=== PATIENT | male | born 1965 | race Caucasian/White ===

== ENCOUNTER 2016-11-02 20:28 | Emergency (ER) | payer OTHER ==
[~2016-11-02 20:28] MED LIST: ACID REDUCER 1150 MG PO; ACTOS PO; ACTOS15 MG PO; AMARYL2 MG PO; B6100 MG PO; BAYER ASPIRIN325 M1 PO; CARBATROL200 MG PO; CEROVITE SILVER1 TA1 PO; CHLORTHALIDONE25 M1 PO; CHLORTHALIDONE25 MG PO; CLINORIL PO; CLOTRIMAZOLE-BE30 M1 TOP; COGENTIN PO; COGENTIN0.5 M1 DOB; COGENTIN0.5 M1 PO; COLACE PO; DEPAKOTE ER PO; DEPAKOTE PO; DIVALPROEX SOD500 M1 PO; DIVALPROEX SOD500 MG PO; DOCUSATE SODIU100 MG PO; DULCOLAX5 MG PO; DYAZIDE 37.5/251 CAP PO; DYAZIDE 371 CAP 37.5 PO; FLEXERIL PO; FLEXERIL10 M1 PO; FLEXERIL10 MG PO; FUROSEMIDE40 MG PO; GLIMEPIRIDE2 MG PO; GLUCOTROL PO; HALDOL0.5 MG PO; HYDROCODONE/APA1 T16 PO; IBUPROFEN100 MG; IBUPROFEN800 MG PO; INVEGA3 MG PO; JANUVIA PO; JANUVIA100 MG PO; K-DUR10 MEQ PO; K-DUR20 ME1 PO; K-TAB ER20 MEQ PO; LANTUS100 U/ML SUBQ; LASIX PO; LEVEMIR SQ; LEVEMIR100 UNITS/ SUBQ; LIORESAL10 MG PO; LISINOPRIL10 MG PO; METFORMIN HCL1000 M1 PO; METFORMIN PO; METOPROLOL TAR25 MG PO; NAPROSYN250 M1 PO; NEURONTIN100 MG PO; OMEPRAZOLE20 M1 PO; OMEPRAZOLE20 M2 PO; PIOGLITAZONE15 MG PO; PIOGLITAZONE45 MG PO; PRILOSEC PO; PRILOSEC20 MG PO; PRINIVIL10 MG PO; QUETIAPINE FUM300 MG PO; SEROQUEL XR300 MG PO; SEROQUEL300 MG PO; SEROQUEL50 M1 PO; SIMVASTATIN20 MG PO; TEGRETOL-XR100 MG PO; THERAGRAN-M PR1 EACH; THERAGRAN1 TAB PO; TRADJENTA5 MG PO; VICODIN 5/1 TAB 5/50 PO; VIMPAT200 MG PO; VITAMIN B650 M1 PO; VOLTAREN75 MG PO; ZANTAC150 M1 PO; ZANTAC150 MG PO; ZESTRIL10 M1 PO; ZOCOR PO; ZOCOR20 MG PO
[2016-11-02 20:41] LABS: URINE SOURCE CLEAN CATCH
[2016-11-02 20:42] LABS: URINE APPEARANCE CLEAR; URINE BILIRUBIN NEG (NEG); URINE BLOOD NEG (NEG); URINE COLOR YELLOW; URINE GLUCOSE 100 MG/DL (NORM); URINE KETONE TRACE (NEG); URINE LEUKOCYTE ESTERASE NEG (NEG); URINE NITRATE NEG (NEG); URINE PH 5.5 (5-8); URINE PROTEIN NEG (NEG); URINE SPECIFIC GRAVITY 1.025 (1.003-1.035); URINE UROBILINOGEN 0.2 MG/DL (NORM)
[2016-11-02 20:43] LABS: MICRO INDICATED? NO
[2016-11-02 21:58] LABS: BASOPHIL% 0.7 % (0-2.5); EOSINOPHIL% 0.8 % (0.0-7.0); HEMATOCRIT 39.4 % (38.0-50.0); LYMPHOCYTE# 1.6 X10e3 (1.0-3.5); MEAN CELL VOLUME 65.7 FL (83-96); MEAN CORPUSCULAR HEMOGLOBIN 20.1 PG (28-34); MEAN CORPUSCULAR HGB CONC 30.5 g/dL (30-36); MEAN PLATELET VOLUME 8.9 FL (6.5-11.5); MONOCYTE# 0.5 X10e3 (0-1.0); MONOCYTE% 8.8 % (3.0-12.0); NEUTROPHIL# 3.1 X10e3 (1.5-7.1); NEUTROPHIL% 59.7 % (40-75); PLATELET COUNT 239 X10e3 (140-420); RED CELL DISTRIBUTION WIDTH 16.4 % (11.0-15.5); WHITE BLOOD COUNT 5.2 X10e3 (4.0-10.5)
[2016-11-02 21:59] LABS: DIFF IND NO
[2016-11-02 22:07] LABS: ALBUMIN SERUM 3.8 g/dL (3.5-5.0); ALKALINE PHOSPHATASE 57 U/L (32-92); ALT (SGPT) 24 U/L (10-40); AST (SGOT) 30 U/L (10-42); BILIRUBIN,TOTAL 0.3 mg/dL (0.2-2.0); BLOOD UREA NITROGEN 23 mg/dL (9-23); BUN/CREATININE RATIO 19.16; CALCIUM SERUM 8.9 mg/dL (8.4-10.2); CARBON DIOXIDE 29 mmol/L (22-31); CHLORIDE 101 mmol/L (100-111); CREATININE SERUM 1.2 mg/dL (0.6-1.4); GLOM FILT RATE Estimated ABOVE60 mL/min (>60); GLUCOSE FASTING 224 mg/dL (70-110); POTASSIUM 4.5 mmol/L (3.5-5.1); PROTEIN TOTAL SERUM 7.1 g/dL (6.0-8.3); SODIUM 137 mmol/L (135-145)
== END 2016-11-02 22:46 | disposition home or self-care (01) ==
LOC: SED 20:28
PROVIDERS: Emergency Medicine; Physician Assistant
DX: M77.9 Enthesopathy, unspecified (principal); E11.9 Type 2 diabetes mellitus without complications; I10 Essential (primary) hypertension; F41.9 Anxiety disorder, unspecified; K21.9 Gastro-esophageal reflux disease without esophagitis; Z91.040 Latex allergy status; Z79.899 Other long term (current) drug therapy
CPT/HCPCS: 29280; 36415; 80053; 81003; 85025; 99283

== ENCOUNTER 2016-11-16 17:20 | Emergency (ER) | payer OTHER ==
--- NOTE | ~2016-11-16 | CR63 ---
[facility]. [facility] A Service of [facility] RADIOLOGY TEXT RESULTS PATIENT: CARL LATHAM LOCATION: SED : 63 UNIT #: [id number] AGE: [address]: YANN RUTH PA-C SEX: M ORDER DR: [id number] [place] [address] [id number] E MR#: [id number] Acc #: [id number] NAME: CARL LATHAM : 1965 SEX: M STUDY DATE/TIME: 11/16/2016 18:13 UNIT: SED ROOM: STUDY DESCRIPTION: CR Chest 2 View Attending Physician: Yann Ruth Pa-C Ordering Physician: Yann Ruth Pa-C Primary Care Physician: Elijah Gaona M.D. MEDICAL IMAGING REPORT This report is preliminary unless electronic signature is present. EXAM Chest x-ray HISTORY Chest pain with left hand, arm and neck tingling, onset today. COMPARISON 03/18/2016 TECHNIQUE 2 views of the chest were obtained. FINDINGS PA and lateral examination of the chest upright shows a good expansion of the parenchyma with a normal distribution of the pulmonary vascularity. There is no indication of congestion, effusion, infiltrate, tumor, or nodular density. The pleural reflections and diaphragmatic contours are normal. The cardiac silhouette and mediastinal anatomy is within normal limits. IMPRESSION Normal chest. Dictated by... Deejay Singh M.D. THIS IS AN ELECTRONICALLY VERIFIED REPORT Deejay Singh M.D. at 11/17/2016 8:03 AM RLF/vicente TD: 11/16/2016 23:37 [facility] A Service [facility] RADIOLOGY TEXT RESULTS PATIENT: CARL LATHAM LOCATION: SED : 63 UNIT #: [id number] AGE: [address]: YANN RUTH PA-C SEX: M ORDER DR: LEVY #: [id number] MEDICAL IMAGING REPORT Page 1 of 1
--- NOTE | ~2016-11-16 | EKG ---
PATIENT: CARL LATHAM UNIT #: [id number] Ventricular Rate: 79 BPM Atrial Rate: 79 BPM P-R Interval: 180 ms QRS Duration: 154 ms Q-T Interval: 416 ms QTC Calculation(Bezet): 477 ms P [place]: 53 degrees Calculated R [place]: 15 degrees Calculated T [place]: 18 degrees Diagnosis Line: Normal sinus rhythm Diagnosis Line: Right bundle branch block Diagnosis Line: Abnormal ECG Diagnosis Line: When compared with ECG of 16-NOV-2016 17:50, Diagnosis Line: (unconfirmed) Diagnosis Line: No significant change was found Diagnosis Line: Confirmed by MARQUITA CAMARENA MD ([id number]) on 11/17/2016 Diagnosis Line: 10:33:43 PM INTERPRETING MD: NICOL CARDENAS
--- NOTE | ~2016-11-16 | EKG ---
PATIENT: CARL LATHAM UNIT #: [id number] Ventricular Rate: 85 BPM Atrial Rate: 85 BPM P-R Interval: 186 ms QRS Duration: 148 ms Q-T Interval: 402 ms QTC Calculation(Bezet): 478 ms P Arthur: 61 degrees Calculated R Arthur: 31 degrees Calculated T Arthur: 22 degrees Diagnosis Line: Normal sinus rhythm Diagnosis Line: Possible Left atrial enlargement Diagnosis Line: Right bundle branch block Diagnosis Line: Abnormal ECG Diagnosis Line: No previous ECGs available Diagnosis Line: Confirmed by ISABELLA BAR MD ([id number]) on Diagnosis Line: 12/02/2016 7:11:32 AM INTERPRETING MD: THOMAS
--- NOTE | ~2016-11-16 | EKG ---
PATIENT: CARL LATHAM UNIT #: [id number] Ventricular Rate: 91 BPM Atrial Rate: 91 BPM P-R Interval: 188 ms QRS Duration: 158 ms Q-T Interval: 392 ms QTC Calculation(Bezet): 482 ms P Addis: 57 degrees Calculated R Addis: 13 degrees Calculated T Addis: 16 degrees Diagnosis Line: Normal sinus rhythm Diagnosis Line: Right bundle branch block Diagnosis Line: Abnormal ECG Diagnosis Line: When compared with ECG of 01-JUN-2016 14:02, Diagnosis Line: No significant change was found Diagnosis Line: Confirmed by ISABELLA BAR MD ([id number]) on Diagnosis Line: 12/02/2016 7:11:11 AM INTERPRETING : THOMAS
[2016-11-16 18:16] LABS: BASOPHIL% 0.7 % (0-2.5); EOSINOPHIL% 0.6 % (0.0-7.0); HEMOGLOBIN 12.4 gm/dL (13.0-16.0); LYMPHOCYTE# 1.3 X10e3 (1.0-3.5); LYMPHOCYTE% 22.9 % (17.0-45.0); MEAN CELL VOLUME 65.6 FL (83-96); MEAN CORPUSCULAR HEMOGLOBIN 20.3 PG (28-34); MEAN CORPUSCULAR HGB CONC 30.9 g/dL (30-36); MEAN PLATELET VOLUME 8.8 FL (6.5-11.5); MONOCYTE# 0.6 X10e3 (0-1.0); MONOCYTE% 9.8 % (3.0-12.0); NEUTROPHIL# 3.8 X10e3 (1.5-7.1); PLATELET COUNT 232 X10e3 (140-420); RED CELL DISTRIBUTION WIDTH 15.8 % (11.0-15.5); WHITE BLOOD COUNT 5.8 X10e3 (4.0-10.5)
[2016-11-16 18:23] LABS: DIFF IND NO
[2016-11-16 18:30] LABS: POC - CKMB 1.4 ng/mL (0.0-7.9)
[2016-11-16 18:31] LABS: POC - TROPONIN <0.05 ng/mL (<=0.05)
[2016-11-16 18:36] LABS: ALBUMIN SERUM 3.8 g/dL (3.5-5.0); BILIRUBIN, DIRECT 0.1 mg/dL (0.0-0.2); BILIRUBIN,INDIRECT 0.2 mg/dL (0.0-0.9); BILIRUBIN,TOTAL 0.3 mg/dL (0.2-2.0); BUN/CREATININE RATIO 20.71; CALCIUM SERUM 8.4 mg/dL (8.4-10.2); CREATININE SERUM 1.4 mg/dL (0.6-1.4); GLOM FILT RATE Estimated 57.8 mL/min (>60); POTASSIUM 4.2 mmol/L (3.5-5.1); PROTEIN TOTAL SERUM 7.1 g/dL (6.0-8.3)
[2016-11-16 19:50] LABS: POC - CKMB 1.2 ng/mL (0.0-7.9); POC - MYOGLOBIN 91.5 ng/mL (0.0-169.0)
[2016-11-16 19:51] LABS: POC - TROPONIN <0.05 ng/mL (<=0.05)
== END 2016-11-17 01:45 | disposition hospice, home (50) ==
LOC: SED 17:20
PROVIDERS: Physician Assistant
DX: M79.602 Pain in left arm (principal); M54.2 Cervicalgia; E11.65 Type 2 diabetes mellitus with hyperglycemia; I10 Essential (primary) hypertension; F41.9 Anxiety disorder, unspecified; F32.9 Major depressive disorder, single episode, unspecified; E87.1 Hypo-osmolality and hyponatremia; Z91.040 Latex allergy status; Z79.899 Other long term (current) drug therapy
CPT/HCPCS: 36415; 71020; 80048; 80076; 82553; 82947; 83874; 84484; 85025; 85379; 93005; 96374; 99285; J2270; J2405

== ENCOUNTER 2016-11-24 21:19 | Emergency (ER) | payer OTHER ==
--- NOTE | ~2016-11-24 | CR133 ---
[facility]. [facility] A Service of [facility] RADIOLOGY TEXT RESULTS PATIENT: CARL LATHAM LOCATION: SED : 63 UNIT #: [id number] AGE: [address]: Dean Kim SEX: M ORDER DR: [id number] [place] [id number] E MR#: [id number] Acc #: [id number] NAME: CARL LATHAM : 1965 SEX: M STUDY DATE/TIME: 11/24/2016 21:27 UNIT: SED ROOM: STUDY DESCRIPTION: CR Forearm 2 View Rt Attending Physician: Dean Kim P.A.-C. Ordering Physician: Dean Kim P.A.-C. Primary Care Physician: Elijah Gaona M.D. MEDICAL IMAGING REPORT This report is preliminary unless electronic signature is present. EXAM Right forearm 2 views HISTORY Forearm pain, onset today. FINDINGS 2 views of the right forearm demonstrate arterial vascular calcifications along the volar aspect of the forearm. Correlate clinically for risk factors of peripheral vascular disease. No fracture or dislocation. Wrist and elbow joint unremarkable. IMPRESSION Arterial vascular calcifications medial distal forearm raises concern for underlying arterial vascular disease. Correlate for risk factors. Dictated by... Julissa Fields M.D. THIS IS AN ELECTRONICALLY VERIFIED REPORT Julissa Fields M.D. at 11/25/2016 2:04 PM AMITA/mahesh TD: 11/24/2016 22:51 JOB #: [id number] MEDICAL IMAGING REPORT Page 1 of 1
--- NOTE | ~2016-11-24 | CR142 ---
[facility] [[email or web address] A Service of [facility] & [facility] RADIOLOGY TEXT RESULTS PATIENT: CARL LATHAM LOCATION: SED : 63 UNIT #: [id number] AGE: [address]: Dean Kim SEX: M ORDER DR: [id number] [place] [id number] E MR#: [id number] Acc #: [id number] NAME: CARL LATHAM : 1965 SEX: M STUDY DATE/TIME: 11/24/2016 21:27 UNIT: SED ROOM: STUDY DESCRIPTION: CR Hand Min 3 Views Rt Attending Physician: Dean Kim P.A.-C. Ordering Physician: Dean Kim P.A.-C. Primary Care Physician: Elijah Gaona M.D. MEDICAL IMAGING REPORT This report is preliminary unless electronic signature is present. EXAM Right hand 3 views HISTORY Entire forearm and hand pain today. No injury FINDINGS Three views of the right hand demonstrates mild arthritic changes at the fifth PIP joint. No fracture or dislocation. Bone mineralization appears normal. Soft tissues unremarkable. IMPRESSION Suspected mild degenerative changes fifth PIP joint possibly posttraumatic in nature. Dictated by... Julissa Fields M.D. THIS IS AN ELECTRONICALLY VERIFIED REPORT Julissa Fields M.D. at 11/25/2016 2:04 PM Hoa TD: 11/24/2016 22:48 JOB #: [id number] MEDICAL IMAGING REPORT Page 1 of 1
== END 2016-11-24 22:40 | disposition home or self-care (01) ==
LOC: SED 21:19
DX: M25.531 Pain in right wrist (principal); M79.631 Pain in right forearm; F41.9 Anxiety disorder, unspecified; Z79.899 Other long term (current) drug therapy; Z91.040 Latex allergy status
CPT/HCPCS: 29125; 73090; 73130; 99283

== ENCOUNTER 2016-12-01 09:56 | Emergency (ER) | payer OTHER ==
--- NOTE | ~2016-12-01 | EKG ---
PATIENT: CARL LATHAM UNIT #: [id number] Ventricular Rate: 98 BPM Atrial Rate: 98 BPM P-R Interval: 186 ms QRS Duration: 160 ms Q-T Interval: 408 ms QTC Calculation(Bezet): 520 ms P [place]: 57 degrees Calculated R [place]ichey: 28 degrees Calculated T Richey: 4 degrees Diagnosis Line: Normal sinus rhythm Diagnosis Line: Right bundle branch block Diagnosis Line: Abnormal ECG Diagnosis Line: When compared with ECG of 17-NOV-2016 01:34, Diagnosis Line: No significant change was found Diagnosis Line: Confirmed by ISABELLA BAR MD ([id number]) on Diagnosis Line: 12/02/2016 7:18:04 AM INTERPRETING MD: THOMAS
[2016-12-01 10:50] LABS: ALBUMIN SERUM 4.2 g/dL (3.5-5.0); BILIRUBIN,TOTAL 0.2 mg/dL (0.2-2.0); BUN/CREATININE RATIO 21.33; CALCIUM SERUM 8.5 mg/dL (8.4-10.2); CREATININE SERUM 1.5 mg/dL (0.6-1.4); GLOM FILT RATE Estimated 53.2 mL/min (>60); MAGNESIUM 2.2 mg/dL (1.6-3.0); PHOSPHOROUS 3.1 mg/dL (2.5-4.6); POTASSIUM 4.1 mmol/L (3.5-5.1); PROTEIN TOTAL SERUM 7.4 g/dL (6.0-8.3)
== END 2016-12-01 13:01 | disposition home or self-care (01) ==
LOC: SED 09:56
PROVIDERS: Emergency Medicine
DX: R73.9 Hyperglycemia, unspecified (principal); E86.0 Dehydration; N18.9 Chronic kidney disease, unspecified; Z91.040 Latex allergy status; Z79.899 Other long term (current) drug therapy
CPT/HCPCS: 36415; 80053; 82947; 83735; 84100; 93005; 96361; 96374; 99284

== ENCOUNTER 2016-12-06 23:51 | Emergency (ER) | payer OTHER | END 2016-12-07 00:42 | disposition home or self-care (01) | LOC: SED 23:51 | DX: M54.12 Radiculopathy, cervical region (principal); I10 Essential (primary) hypertension; E11.9 Type 2 diabetes mellitus without complications; F41.9 Anxiety disorder, unspecified; F32.9 Major depressive disorder, single episode, unspecified; K21.9 Gastro-esophageal reflux disease without esophagitis; R56.9 Unspecified convulsions; Z91.040 Latex allergy status; Z79.899 Other long term (current) drug therapy; Z79.4 Long term (current) use of insulin | CPT/HCPCS: 99283 ==

== ENCOUNTER 2016-12-20 15:02 | Inpatient (IN) | payer OTHER ==
--- NOTE | ~2016-12-20 | A ---
[facility] Nutrition Therapy DATE: 12/22/16 Patient: CARL LATHAM Physician: FRANKLYN Address: [address] [address] Room/Bed: [address], Zip: [place] [id number] Admit Date: 12/20/16 Date of : 63 Height: 5 9 Weight: 207 94 NUTRITIONAL ASSESSMENT: REASON: Consult RE: diabetic diet education 51 yo male admitted for chest pain PMH: Seizures, mild mental retardation, valvular heart disease, T2DM, dyslipidemia, renal failure Anthropometrics: Ht: 5'9" Wt: 94.1 kg (207#) BMI: 30.6 Labs: Na+ 133, Gluc 234, BUN 25, Ca++ 8.2, POC 150 Meds: Levemir, Novolog, Klor, Protonix, Furosemide, Zofran, NaCl I/O & Bowel function: 3127/2750, last BM unknown Skin Integrity: Scar (L knee/lilly), no edema noted Assessment: Chart reviewed, events noted. Per RN, pt lives in a assisted and was on non-DKA protocol yesterday. Per chart, upon admission blood glucose levels were in 900's. Per RN, pt's blood sugars levels have been very inconsistent during admission. Per RN, pt has good PO intake. RD internet developer provided written and verbal diabetic diet education. Pt reported not eating consistently throughout the day. Pt reported consuming sodas and sweets daily. RD internet developer discussed carbohydrate foods, portion sizes, and a sample menu. RD internet developer encouraged drinking more water, eating 3 meals/d, and limiting sweets. RD internet developer provided written and verbal goals for pt after d/c. RD internet developer encouraged pt to review handout with family. Pt verbalized understanding, expect moderate compliance after d/c with help from family. Pt asked questions, RD internet developer responded appropriately. RD internet developer to remain available. Dx: Food and nutrition related knowledge deficit RT no previous diet education AEB need for diet educaiton, elevated blood glucose levels. Intervention: 1. Diabetic diet education 2. 60 gm CHO/meal Monitoring, Evaluation and Goals: 1. PO intake; consume >75% of meals 2. Labs; WNL: glucose [facility] Nutrition Therapy DATE: 12/22/16 Patient: CARL LATHAM Physician: FRANKLYN Address: [address] [address] Room/Bed: [address], Zip: [place] [address] Admit Date: 12/20/16 Date of : 63 Height: 5 9 Weight: 207 94 Recommendations: 1. Encourage compliance to 60 gram carbohydrate diet. 2. Re-consult RD if further diet education is needed/requested. RD will f/u per protocol. Respectfully, Leyda Ramirez, Ribbon Blocker Ijeoma Chew MS, RD, LD Food and Nutritional Services [facility] cc: client file
--- NOTE | ~2016-12-20 | TH ---
Unit #: [id number] #: [id number] Patient: CARL LATHAM [id number] [address] [address] [id number] I MR#: [id number] NAME: CARL LATHAM : 1965 SEX: M STUDY DATE/TIME: 12/22/2016 UNIT: [facility] ROOM: [facility] STUDY DESCRIPTION: Attending Physician: Mae Nelson M.D. Primary Care Physician: Elijah Gaona M.D. CARDIOLOGY REPORT EXAM Lexiscan Cardiolite stress test, nuclear portion. PROCEDURE Using technetium 99m labeled Cardiolite, rest and stress SPECT images were obtained. Multiple SPECT images were obtained in various views including horizontal and vertical long axis and short axis views of the left ventricle. Images were obtained by gated SPECT method. The patient was administered 11.42 mCi of Cardiolite at rest. Patient was administered 35.3 mCi of Cardiolite after Lexiscan infusion was completed. On the stress images, there is normal perfusion noted. The rest images showed normal perfusion. Comparing rest and stress images, there is no stress-induced ischemia noted. The left ventricular ejection fraction is calculated to be 70%. There is no focal wall motion abnormality seen. CONCLUSION 1. No stress-induced ischemia noted. 2. The left ventricular ejection fraction is calculated to be 70%. 3. There is no focal wall motion abnormality seen. 4. Normal Lexiscan Cardiolite stress test. Dictated by... Abdelrahman Peter TD: 12/22/2016 16:12 JOB #: [id number] CARDIOLOGY REPORT Page 1 of 1 X Angelica Puga MD <ELECTRONICALLY SIGNED> 03/05/17 1429 CARDIOLOGY REPORT
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
--- NOTE | ~2016-12-20 | CR72 ---
[facility]. [facility] A Service of [facility] RADIOLOGY TEXT RESULTS PATIENT: CARL LATHAM LOCATION: CICCU3 CICCU3-18 : 63 UNIT #: [id number] AGE: [address]: Mae Nelson MD SEX: M ORDER DR: [id number] [address] [address] [id number] E MR#: [id number] Acc #: [id number] NAME: CARL LATHAM : 1965 SEX: M STUDY DATE/TIME: 12/20/2016 16:18 UNIT: SED ROOM: STUDY DESCRIPTION: CR Chest Single View Portable Attending Physician: Pato Mosqueda M.D. Ordering Physician: Pato Mosqueda M.D. Primary Care Physician: Elijah Gaona M.D. MEDICAL IMAGING REPORT This report is preliminary unless electronic signature is present. EXAM AP portable chest 12/20/2016 COMPARISON 11/16/2016 HISTORY Chest pain beginning last night. AP portable view is obtained. FINDINGS The cardiovascular configuration is normal and the lungs are clear. CONCLUSION Negative portable chest. Dictated by... Butch Melgar M.D. THIS IS AN ELECTRONICALLY VERIFIED REPORT Butch Melgar M.D. at 12/21/2016 7:10 AM KETURAH/taina TD: 12/20/2016 18:15 JOB #: [id number] MEDICAL IMAGING REPORT Page 1 of 1
--- NOTE | ~2016-12-20 | CO ---
Unit #: [id number] #: [id number] Patient: CARL LATHAM [id number] [facility] [address] [place], [place] [address] [id number] I MR#: [id number] NAME: CARL LATHAM ROOM: 566 Age: 51 Sex: M Admission Date: 12/20/2016 : 1965 Attending Physician: Mae Nelson M.D. Primary Care Physician: Elijah Gaona M.D. Consultation Date: 12/23/2016 CONSULTATION REPORT DATE OF SERVICE 12/23/2016 REASON FOR CONSULTATION Agitation, aggression, belligerent behavior. HISTORY OF PRESENT ILLNESS Carl Latham is a 51-year-old white male seen in room 566, bed one, on 12/23/[address] [facility]. The patient carries the diagnosis of bipolar mood disorder, mild mental retardation, according to the previous history. The patient was on Depakote, Invega, Seroquel upon admission. The patient reported that he wanted to leave and carrying on a conversation by himself, agitated. Subsequently, security was called. The patient was explained that he is not medically cleared. The patient was admitted for hyperglycemia, diabetic ketoacidosis in ICU and recently stepped down. The patient is still having problems with agitation, mood lability. Subsequently, the patient was given Haldol 10 mg, Cogentin 1 mg, Ativan 1 mg. The patient was able to regroup. The patient denied any use of drugs or alcohol. A poor historian. PAST PSYCHIATRIC HISTORY History of bipolar mood disorder, as mentioned above. History of mild mental retardation/mild intellectual disability. MEDICAL HISTORY History of severe hyperglycemia, diabetic ketoacidosis, atypical chest pain, history of type 2 diabetes, history of seizure, history of mild mental retardation, history of hypertension, valvular heart disease, history of dyslipidemia, hypokalemia. ALLERGIES Latex. MEDICATION 1. Zocor. 2. Tegretol. 3. Depakote. 4. Klor-Con. 5. Zestril. 6. Protonix. 7. Vimpat. 8. Seroquel. 9. Furosemide. 10. Mobic. Unit #: [id number] #: [id number] Patient: CARL LATHAM 11. Insulin. REVIEW OF SYSTEMS Complete review of systems is remarkable for agitation, as mentioned above. MENTAL STATUS EXAMINATION VITAL SIGNS: 97.7, 72, 18, 100/62, oxygen saturation 100%. GENERAL APPEARANCE: Patient well built, dressed casually in hospital attire, very mad, angry, upset, agitated. ATTENTION SPAN AND CONCENTRATION: Poor. SPEECH: Poor. ORIENTATION: Oriented in self and place. MOOD AND AFFECT: Labile. THOUGHT PROCESS: Circumstantial. THOUGHT CONTENT: Guarded, paranoid, mood lability, hostility but denied any thoughts of harming self or others but making threats. RECENT AND REMOTE MEMORY: Poor. LANGUAGE: Fair to impaired. FUND OF KNOWLEDGE: Poor. INSIGHT AND JUDGMENT: Impaired. DIAGNOSIS Psychiatric: 1. Bipolar mood disorder, NOS, F31.89. SECONDARY DIAGNOSIS Mild intellectual disability. MEDICAL DIAGNOSIS Please refer to H and P. STRESSORS Psychosocial stressors. ASSESSMENT/PLAN 1. Supportive psychotherapy, psychoeducation provided to patient. 2. Educated about benefits and side effects of medication and course and prognosis of illness but patient unable to comprehend much at this time and uncooperative. 3. Advised to continue with current combination of medication and advised to give Haldol 10 mg, Cogentin 1 mg and Ativan 1 mg p.o. If no improvement, consider transferring to patient to [facility] for psychiatric stabilization. Please feel free to call if any questions, telephone number, . Dictated by... Abdelrahman Phelps/kylah TD: 12/24/2016 10:36 JOB #: [id number] Unit #: [id number] #: [id number] Patient: CARL LATHAM CONSULTATION REPORT Page 1 of 1 X Brett Blake MD X CONSULTATION REPORT
--- NOTE | ~2016-12-20 | US67 ---
[facility] A Service of [facility] RADIOLOGY TEXT RESULTS PATIENT: CARL LATHAM LOCATION: [facility] 566-01 : 63 UNIT #: [id number] AGE: [address]: Mae Nelson MD SEX: M ORDER DR: [id number] [facility] [address] [facility]. [place], [place] [address] [id number] I MR#: [id number] Acc #: [id number] NAME: CARL LATHAM : 1965 SEX: M STUDY DATE/TIME: 12/23/2016 8:14 UNIT: [facility] ROOM: [facility] STUDY DESCRIPTION: US Gallbladder Attending Physician: Mae Nelson M.D. Ordering Physician: Daniel Crespo M.D. Primary Care Physician: Elijah Gaona M.D. MEDICAL IMAGING REPORT This report is preliminary unless electronic signature is present EXAM Gallbladder ultrasound, 12/23/2016 HISTORY Chest pain and right upper quadrant abdominal pain for 1 week, diabetes and hypertension. FINDINGS The liver is homogeneous in echotexture and demonstrates no cystic or solid mass lesions. The intra and extrahepatic bile ducts are not dilated. The gallbladder is normal with no evidence of cholelithiasis, wall thickening or pericholecystic fluid. The common duct measures 3.0 mm. The pancreas is poorly visualized due to overlying bowel gas. There is a 1.0 cm cyst on the right kidney. IMPRESSION 1. Normal gallbladder. 2. Poor visualization of the pancreas due to overlying bowel gas. 3. Right renal cyst. Dictated by... Virgil Alcantara M.D. THIS IS AN ELECTRONICALLY VERIFIED REPORT Virgil Alcantara M.D. at 12/24/2016 8:10 AM YANN/ruby TD: 12/23/2016 09:50 JOB #: [id number] MEDICAL IMAGING REPORT Page 1 of 1 COPY
--- NOTE | ~2016-12-20 | ST ---
Unit #: [id number] #: [id number] Patient: CARL LATHAM [id number] [facility]. [place] 084930 [facility]. [place], [place] [address] [id number] I MR#: [id number] NAME: CARL LATHAM : 1965 SEX: M STUDY DATE/TIME: 12/22/2016 UNIT: [facility] ROOM: [facility] STUDY DESCRIPTION: Attending Physician: Mae Nelson M.D. Primary Care Physician: Elijah Gaona M.D. CARDIOLOGY REPORT EXAM Lexiscan Cardiolite stress test. FINDINGS Baseline EKG: Normal sinus rhythm with ventricular rate 78 beats per minute, right bundle branch block, poor R-wave progression. PROCEDURE Lexiscan is a 4-minute test with Lexiscan being injected within the first minute followed by Cardiolite. EKG during the test did show some nonspecific ST-T wave abnormalities and ST segment in septal anterior leads. The patient had no complaints of chest pain, palpitations, or dizziness. Had increased shortness of breath and fatigueness which resolved in recovery phase. Maximum heart rate response was 122 beats per minute with a maximum blood pressure response of 132/83 mmHg. Cardiolite was injected after Lexiscan within the first minute of the test. Radionuclide tests pending. Please correlate with nuclear images. Dictated by... Bridget Sahni A.P.R.N. for Abdelrahman Peter TD: 12/22/2016 10:00 JOB #: [id number] CARDIOLOGY REPORT Page 1 of 1 X Bridget Sahni APRN CARDIOLOGY REPORT
--- NOTE | ~2016-12-20 | EKG ---
PATIENT: CARL LATHAM UNIT #: [id number] Ventricular Rate: 103 BPM Atrial Rate: 103 BPM P-R Interval: 194 ms QRS Duration: 162 ms Q-T Interval: 386 ms QTC Calculation(Bezet): 505 ms P [place]: 74 degrees Calculated R [place]: 55 degrees Calculated T [place]: 1 degrees Diagnosis Line: Sinus tachycardia Diagnosis Line: Right bundle branch block with repolarization Diagnosis Line: abnormality Diagnosis Line: T wave abnormality, consider inferior ischemia Diagnosis Line: Abnormal ECG Diagnosis Line: No previous ECGs available Diagnosis Line: Confirmed by ÓSCAR JENKINS MD ([id number]) on 12/22/2016 Diagnosis Line: 9:40:07 AM INTERPRETING MD: GREGORY CARDENAS
--- NOTE | ~2016-12-20 | DS ---
Unit #: [id number] #: [id number] Patient: CARL LATHAM [id number] [address] [address] [id number] I MR#: [id number] NAME: CARL LATHAM ROOM: 566 Age: 51 Sex: M Admission Date: 12/20/2016 : 1965 Discharge Date: 12/23/2016 Attending Physician: Mae Nelson M.D. Primary Care Physician: Elijah Gaona M.D. DISCHARGE SUMMARY DISCHARGE DIAGNOSES 1. Altered mental status, active psychosis versus delirium. 2. Status post diabetic ketoacidosis. 3. History of mild mental retardation. 4. Atypical chest pain, status post cardiology evaluation. 5. History of valvular heart disease. 6. Status post acute kidney injury. 7. Hypertension. 8. History of seizure disorder. CONSULTS DURING THIS HOSPITAL STAY 1. Dr. Robertson - Endocrinology. 2. Dr. Crespo - Cardiology. LABS, DIAGNOSTICS AND PROCEDURES DURING THIS HOSPITAL STAY Chest x-ray negative. Gallbladder ultrasound normal. It showed right renal cyst. Discharge BUN and creatinine 17 and 0.9, last blood glucose 197. HISTORY OF PRESENT HOSPITAL STAY Please refer to H and P done by me for initial presentation on this gentleman. ACTIVE PROBLEMS AND DIAGNOSES Altered mental status with questionable psychosis versus delirium: The patient was given Haldol, Cogentin, Ativan. Was evaluated by psychiatry. Discussed the case in detail with the psychiatrist, Dr. Blake, who is willing and accepting patient to [facility]. Patient is medically clear so they transferred to [facility]. Diabetic ketoacidosis, resolved: Status post endocrinology evaluation. Currently on subcu insulin. Atypical chest pain, status post cardiology evaluation: Stable from cardiac standpoint to be discharged. Did have a 2D echo which showed EF of 65% with impaired left ventricular relaxation. Currently on medical management. Stable from cardiac standpoint. See discharge Med Rec below. History of seizure disorder: Continue home meds. Acute kidney injury, resolved: Last BUN and creatinine as above. Unit #: [id number] #: [id number] Patient: CARL LATHAM History of valvular heart disease, stable hemodynamics. Hypertension, stable: Discharge date BP 114/85. DISCHARGE MEDICATIONS 1. Ativan 1 mg p.o. q.4 hours p.r.n. for anxiety. 2. Carbamazepine 200 mg p.o. b.i.d. 3. Tegretol 200 mg b.i.d. 4. Depakote 1000 mg p.o. q. h.s. and 500 mg q. a.m. 5. Vimpat 200 mg p.o. b.i.d. 6. Zofran 4 mg q.4-6 p.r.n. for nausea. 7. Cogentin 1 mg p.o. once per psychiatry p.r.n. p.o. or IM. 8. Haldol 10 mg p.o. once p.r.n. per psych p.o. or IM. 9. Seroquel 300 mg b.i.d. 10. Lasix 40 mg daily. 11. Zocor 20 mg at bedtime. 12. Zestril 5 mg daily. 13. Levemir 30 units subcu q. h.s. 14. NovoLog 8 units subcu t.i.d. with meals. 15. Sliding scale insulin. 16. Zantac 150 mg b.i.d. 17. Mobic 15 mg daily p.r.n. Actually, I will discontinue Mobic since he came in with acute kidney injury. 18. Protonix 40 mg daily. 19. Vitamin B6 at home dose. 20. KCl 20 mEq p.o. daily. DISPOSITION As above. Discharge him to [facility] to Dr. Blake's care. Dictated by... Jovany Cooper M.D. OC/matilda TD: 12/24/2016 06:09 JOB #: [id number] DISCHARGE SUMMARY Page 1 of 1 X Jovany Cooper MD X DISCHARGE SUMMARY
--- NOTE | ~2016-12-20 | HP ---
Unit #: [id number] #: [id number] Patient: CARL LATHAM [id number] [address] [address] [id number] I MR#: [id number] NAME: ACRL LATHAM ROOM: [facility]3 Age: 51 Sex: M Admission Date: 12/20/2016 : 1965 Attending Physician: Mae Nelson M.D. Primary Care Physician: Elijah Gaona M.D. HISTORY AND PHYSICAL ADMISSION DIAGNOSES 1. Severe hyperglycemia with diabetic ketoacidosis. 2. Atypical chest pain. 3. History of diabetes type 2. 4. History of seizures. 5. History of mild mental retardation. 6. History of hypertension, now hypotensive. 7. History of valvular heart disease. 8. History of dyslipidemia. 9. Hypokalemia. HISTORY OF PRESENT ILLNESS Mr. Carl Latham is a 51-year-old gentleman, patient of Dr. Gaona, who was taken to an [facility] ER secondary to complaints of some chest discomfort where he was found severely hyperglycemic with the blood glucose of 945, along with BUN 48 and creatinine 1.7. He was started on IV insulin non-DKA protocol and was transferred to [facility] ICU. This morning his blood glucose came down to 162 and BUN 42, and creatinine 1.2. Initially, he was also with severe pseudohyponatremia with the sodium of 115, this morning is 133. He tells me that he had some chest discomfort while having dinner. He is the one with the history of mild mental retardation. He describes the pain as a sharp, substernal chest pain without any radiation to any other parts of the body. Denies any shortness of air, headache, dizziness, fever, chills, nausea, vomiting, diarrhea, or abdominal pain. Denies any cough. REVIEW OF SYSTEMS Twelve-point review of systems on this patient is basically negative except as above. PAST MEDICAL HISTORY Significant for: 1. History of mild mental retardation. 2. History of valvular heart disease. 3. History of hypertension. 4. History of diabetes type 2. 5. History of seizure disorder. 6. History of dyslipidemia. 7. History of renal failure in the past. PAST SURGICAL HISTORY Significant for: Hernia repair. Unit #: [id number] #: [id number] Patient: CARL LATHAM CURRENT MEDICATIONS Include: 1. Zocor. 2. Tegretol. 3. Depakote. 4. Klor-Con. 5. Zestril. 6. Protonix. 7. Vimpat. 8. Seroquel. 9. Depakote. 10. Furosemide. 11. Mobic. 12. IV insulin. ALLERGIES Latex. FAMILY HISTORY Unremarkable. PHYSICAL EXAMINATION VITAL SIGNS: BP 97/77, heart rate 84, respirations 19, temperature 97.3. GENERAL: The patient is a 51-year-old gentleman in no acute distress. HEENT: Head is atraumatic. Pupils equal, round, reactive to light and accommodation. Extraocular muscles are intact. Oropharynx is clear. NECK: Supple. No mass, no JVD, no bruits. LUNGS: Diminished bilaterally at the bases generally clear. HEART: S1, S2. No murmurs. ABDOMEN: Soft, nontender, nondistended. LOWER EXTREMITIES: Without any significant cyanosis, clubbing, or edema. NEUROLOGIC: Patient without any focal deficits. and answers questions appropriately. DIAGNOSTIC STUDIES LABORATORY: Chemistry as above. First set of cardiac enzymes negative with troponin of less than 0.05. White count 8.0, hemoglobin 12, hematocrit 38.8. IMAGING: Chest x-ray negative. ASSESSMENT AND PLAN 1. Non-DKA hyperglycemia. Continue insulin management per Dr. Robertson. Status post evaluation per Dr. Robertson. 2. Diabetes type 2 as above. 3. Atypical chest pain. Will trend troponin. Check 2D echo. Will ask Cardiology to consult. 4. History of seizure disorder. Continue home medications. 5. History of mild mental retardation. 6. History of hypertension, now hypotensive. Decreased lisinopril. 7. Acute renal failure with hypokalemia and pseudohyponatremia. Creatinine is better. Discontinue Mobic. Consider nephrology evaluation. 8. Dyslipidemia. Continue home medications. 9. GI and DVT prophylaxis. Continue PPI and put on SCDs. Unit #: [id number] #: [id number] Patient: CARL LATHAM Dictated by Abdelrahman Sheffield/zach TD: 12/21/2016 22:18 JOB #: [id number] HISTORY AND PHYSICAL Page 1 of 1 X Jovany Cooper MD HISTORY AND PHYSICAL
--- NOTE | ~2016-12-20 | CO ---
Unit #: [id number] #: [id number] Patient: CARL LATHAM [id number] [address] [address] [id number] I MR#: [id number] NAME: CARL LATHAM ROOM: [facility]3 Age: 51 Sex: M Admission Date: 12/20/2016 : 1965 Attending Physician: Mae Nelson M.D. Primary Care Physician: Elijah Gaona M.D. Consultation Date: 12/21/2016 CONSULTATION REPORT REASON FOR CONSULT Hyperglycemia. HISTORY OF PRESENT ILLNESS This is a 51-year-old male with history of type 2 diabetes mellitus poor compliance, A1c is 14%, who presented to the emergency room for generalized weakness, hyperglycemia, increased frequency of urination, increased thirst. On arrival in the emergency room, patient was found to have blood glucose level above 900 with sodium of 115, acute renal failure, creatinine of 1.7. He was started on insulin drip. IV fluids were started. Blood sugars have been stable. At this time, I have been asked to see the patient for further management. Patient reports he has not been taking his insulin and has not been taking his medications either. He does have history of poor compliance and with previous admissions in the hospital for the same problem. REVIEW OF SYSTEMS A 12-point review of system is completed. Please see HPI. The rest of the 10-point review of system unremarkable. SOCIAL HISTORY Lives in a prison. No history of alcohol and drug abuse. PAST MEDICAL HISTORY 1. Type 2 diabetes mellitus. 2. Hypertension. 3. Hyperlipidemia. 4. History of seizure disorder. 5. Questionable intellectual disability. FAMILY HISTORY Coronary artery disease, diabetes, hypertension. PAST SURGICAL HISTORY Hernia repair. ALLERGIES None. HOME MEDICATIONS Unknown. He reports he is supposed to be taking Levemir 30 units to 35 units twice daily. Is supposed to be on medications but he does not know and take his medications. Unit #: [id number] #: [id number] Patient: CARL LATHAM PHYSICAL EXAMINATION GENERAL: He is awake and alert, looks weak. VITAL SIGNS: Temperature 97.3, pulse 84, respirations 15, blood pressure 104/66. HEENT: EOMI. Pupils equally react to light. NECK: Supple. No thyromegaly noted. CHEST: Good air entry. CARDIOVASCULAR: Regular rhythm. S1, S2. ABDOMEN: Soft, nontender. Bowel sounds positive. EXTREMITIES: No edema noted. DIAGNOSTIC STUDIES LABORATORY: Labs were reviewed. On current medication, blood glucose 162, creatinine 1.2, sodium 133, potassium 3.2, chloride 97, CO2 is 26, calcium 8.3. A1c is above 14%. ASSESSMENT 1. Hyperosmolar hyperglycemia with ketosis. No metabolic acidosis noted. Currently, improved blood sugars at this time. 2. Hypokalemia. 3. Hyponatremia, improved. 4. Dehydration. 5. Acute renal injury, improved. PLAN I will continue IV normal saline at 100 mL/hr. Discontinue insulin drip and start Levemir 30 units at bedtime, NovoLog 8 units each meal. Advance diet to consistent carbohydrate. Get nutrition consult. Accu-Cheks a.c. and at bedtime. Discuss with patient at length about need for compliance. Monitor electrolytes. Replace as needed. Dictated by... Abdelrahman Harper/navin TD: 12/22/2016 10:23 JOB #: [id number] CONSULTATION REPORT Page 1 of 1 X Martha Robertson MD X CONSULTATION REPORT
--- NOTE | ~2016-12-20 | EKG ---
PATIENT: CARL LATHAM UNIT #: [id number] Ventricular Rate: 69 BPM Atrial Rate: 69 BPM P-R Interval: 166 ms QRS Duration: 160 ms Q-T Interval: 428 ms QTC Calculation(Bezet): 458 ms P [place]: 39 degrees Calculated R [place]: 33 degrees Calculated T [place]: 15 degrees Diagnosis Line: Sinus rhythm with Premature atrial complexes Diagnosis Line: Right bundle branch block with repolarization Diagnosis Line: abnormality Diagnosis Line: Abnormal ECG Diagnosis Line: When compared with ECG of 01-DEC-2016 09:48, Diagnosis Line: Premature atrial complexes are now Present Diagnosis Line: Nonspecific T wave abnormality has replaced Diagnosis Line: inverted T waves in Inferior leads Diagnosis Line: T wave inversion less evident in Anterior leads Diagnosis Line: Nonspecific T wave abnormality now evident in Diagnosis Line: Lateral leads Diagnosis Line: QT has shortened Diagnosis Line: Confirmed by ÓSCAR JENKINS MD ([id number]) on 12/22/2016 Diagnosis Line: 9:58:17 AM INTERPRETING MD: GREGORY CARDENAS
--- NOTE | ~2016-12-20 | EKG ---
PATIENT: CARL LATHAM UNIT #: [id number] Ventricular Rate: 103 BPM Atrial Rate: 103 BPM P-R Interval: 194 ms QRS Duration: 162 ms Q-T Interval: 386 ms QTC Calculation(Bezet): 505 ms P [place]: 74 degrees Calculated R [place]: 55 degrees Calculated T [place]: 1 degrees Diagnosis Line: Sinus tachycardia Diagnosis Line: Right bundle branch block with repolarization Diagnosis Line: abnormality Diagnosis Line: T wave abnormality, consider inferior ischemia Diagnosis Line: Abnormal ECG Diagnosis Line: No previous ECGs available Diagnosis Line: Confirmed by ÓSCAR JENKINS MD ([id number]) on 12/22/2016 Diagnosis Line: 9:40:07 AM Diagnosis Line: Also confirmed by ÓSCAR JENKINS MD ([id number]), commissioning editor Diagnosis Line: MONROE FRANCO ([id number]) on 12/22/2016 10:50:43 AM INTERPRETING MD: GREGORY CARDENAS
[2016-12-20] MEDS ORDERED: CARBATROL PO (15:20)
[2016-12-20] MEDS ORDERED: DIVALPROEX PO ×2 (15:21)
[2016-12-20] MEDS ORDERED: LASIX PO (15:22)
[2016-12-20] MEDS ORDERED: HALDOL PO (15:22)
[2016-12-20] MEDS ORDERED: NEURONTIN PO (15:22)
[2016-12-20] MEDS ORDERED: LEVEMIR SUBQ (15:23)
[2016-12-20] MEDS ORDERED: INVEGA PO (15:23)
[2016-12-20] MEDS ORDERED: ACTOS PO (15:24)
[2016-12-20] MEDS ORDERED: LISINOPRIL PO (15:24)
[2016-12-20] MEDS ORDERED: OMEPRAZOLE PO (15:24)
[2016-12-20] MEDS ORDERED: POTASSIUM CL PO (15:24)
[2016-12-20] MEDS ORDERED: ZOCOR PO (15:25)
[2016-12-20] MEDS ORDERED: ZANTAC PO (15:25)
[2016-12-20] MEDS ORDERED: SEROQUEL PO (15:25)
[2016-12-20] MEDS ORDERED: TRIAM/HCTZ PO (15:26)
[2016-12-20] MEDS ORDERED: THERAGRAM PO (15:26)
[2016-12-20] MEDS ORDERED: MOBIC PO (15:27)
[2016-12-20] MEDS ORDERED: VIMPAT PO (15:27)
[2016-12-20] MEDS ORDERED: VITAMIN B6 (15:27)
[2016-12-20 15:56] LABS: BASOPHIL% 0.4 % (0-2.5); EOSINOPHIL% 0.5 % (0.0-7.0); HEMATOCRIT 42.1 % (38.0-50.0); LYMPHOCYTE# 1.1 X10e3 (1.0-3.5); LYMPHOCYTE% 21.3 % (17.0-45.0); MEAN CELL VOLUME 67.3 FL (83-96); MEAN CORPUSCULAR HEMOGLOBIN 20.2 PG (28-34); MEAN PLATELET VOLUME 9.7 FL (6.5-11.5); MONOCYTE# 0.5 X10e3 (0-1.0); MONOCYTE% 8.9 % (3.0-12.0); NEUTROPHIL# 3.7 X10e3 (1.5-7.1); NEUTROPHIL% 68.9 % (40-75); PLATELET COUNT 201 X10e3 (140-420); RED BLOOD COUNT 6.26 X10e (3.90-5.60); RED CELL DISTRIBUTION WIDTH 15.2 % (11.0-15.5); WHITE BLOOD COUNT 5.3 X10e3 (4.0-10.5)
[2016-12-20 15:59] LABS: POC - CKMB <1.0 ng/mL (0.0-7.9); POC - TROPONIN <0.05 ng/mL (<=0.05)
[2016-12-20 16:13] LABS: DIFF IND NO
[2016-12-20 16:16] LABS: HEMOGLOBIN 12.6 gm/dL (13.0-16.0)
[2016-12-20 16:40] LABS: ALBUMIN SERUM 3.8 g/dL (3.5-5.0); ALKALINE PHOSPHATASE 77 U/L (32-92); ALT (SGPT) 20 U/L (10-40); AST (SGOT) 14 U/L (10-42); BILIRUBIN,TOTAL 0.6 mg/dL (0.2-2.0); BLOOD UREA NITROGEN 48 mg/dL (9-23); BUN/CREATININE RATIO 28.23; CALCIUM SERUM 8.8 mg/dL (8.4-10.2); CARBON DIOXIDE 25 mmol/L (22-31); CHLORIDE 78 mmol/L (100-111); CREATININE SERUM 1.7 mg/dL (0.6-1.4); GLOM FILT RATE Estimated 45.4 mL/min (>60); PROTEIN TOTAL SERUM 7.3 g/dL (6.0-8.3)
[2016-12-20 16:43] LABS: BILIRUBIN, DIRECT <0.1 mg/dL (0.0-0.2); BILIRUBIN,INDIRECT 0.5 mg/dL (0.0-0.9); GLUCOSE FASTING 945 mg/dL (70-110); SODIUM 115 mmol/L (135-145)
[2016-12-20 17:14] LABS: URINE SOURCE CLEAN CATCH
[2016-12-20 17:14] LABS: POC - CKMB <1.0 ng/mL (0.0-7.9)
[2016-12-20 17:15] LABS: POC - TROPONIN <0.05 ng/mL (<=0.05)
[2016-12-20 17:20] LABS: URINE APPEARANCE CLEAR; URINE BILIRUBIN NEG (NEG); URINE BLOOD NEG (NEG); URINE COLOR YELLOW; URINE GLUCOSE 300 MG/DL (NORM); URINE KETONE TRACE (NEG); URINE LEUKOCYTE ESTERASE NEG (NEG); URINE NITRATE NEG (NEG); URINE PROTEIN NEG (NEG); URINE UROBILINOGEN 0.2 MG/DL (NORM)
[2016-12-20 17:28] LABS: MICRO INDICATED? NO
[2016-12-21 06:16] LABS: HEMATOCRIT 38.8 % (38.0-50.0); MEAN CORPUSCULAR HEMOGLOBIN 19.8 PG (28-34); MEAN CORPUSCULAR HGB CONC 30.8 g/dL (30-36); MEAN PLATELET VOLUME 9.3 FL (6.5-11.5); RED BLOOD COUNT 6.05 X10e (3.90-5.60); RED CELL DISTRIBUTION WIDTH 15.2 % (11.0-15.5)
[2016-12-21 06:40] LABS: MEAN CELL VOLUME 64.3 FL (83-96)
[2016-12-21 06:53] LABS: ALBUMIN SERUM 3.5 g/dL (3.5-5.0); BILIRUBIN,TOTAL 0.6 mg/dL (0.2-2.0); CALCIUM SERUM 8.3 mg/dL (8.4-10.2); CREATININE SERUM 1.2 mg/dL (0.6-1.4); GLOM FILT RATE Estimated 69.1 mL/min (>60); PROTEIN TOTAL SERUM 6.4 g/dL (6.0-8.3)
[2016-12-21 06:58] LABS: POTASSIUM 3.2 mmol/L (3.5-5.1)
[2016-12-21 21:29] LABS: %MB 1.1 % (0.0-4.0)
[2016-12-22 03:41] LABS: BASOPHIL% 0.5 % (0-2.5); EOSINOPHIL# 0.1 X10e3 (0-0.7); EOSINOPHIL% 1.6 % (0.0-7.0); HEMATOCRIT 37.9 % (38.0-50.0); HEMOGLOBIN 11.5 gm/dL (13.0-16.0); LYMPHOCYTE# 2.1 X10e3 (1.0-3.5); LYMPHOCYTE% 30.3 % (17.0-45.0); MEAN CELL VOLUME 65.2 FL (83-96); MEAN CORPUSCULAR HEMOGLOBIN 19.8 PG (28-34); MEAN CORPUSCULAR HGB CONC 30.4 g/dL (30-36); MONOCYTE# 0.5 X10e3 (0-1.0); MONOCYTE% 6.8 % (3.0-12.0); NEUTROPHIL# 4.2 X10e3 (1.5-7.1); NEUTROPHIL% 60.8 % (40-75); PLATELET COUNT 183 X10e3 (140-420); RED BLOOD COUNT 5.82 X10e (3.90-5.60); RED CELL DISTRIBUTION WIDTH 14.9 % (11.0-15.5); WHITE BLOOD COUNT 6.8 X10e3 (4.0-10.5)
[2016-12-22 03:43] LABS: DIFF IND NO
[2016-12-22 03:50] LABS: BUN/CREATININE RATIO 22.72; CALCIUM SERUM 8.2 mg/dL (8.4-10.2); CREATININE SERUM 1.1 mg/dL (0.6-1.4); GLOM FILT RATE Estimated 76.8 mL/min (>60)
[2016-12-22 04:08] LABS: %MB 1.2 % (0.0-4.0)
[2016-12-23 06:08] LABS: BLOOD UREA NITROGEN 17 mg/dL (9-23); BUN/CREATININE RATIO 18.88; CALCIUM SERUM 8.3 mg/dL (8.4-10.2); CARBON DIOXIDE 24 mmol/L (22-31); CHLORIDE 106 mmol/L (100-111); CHOLESTEROL 221 mg/dL (0-200); CREATININE SERUM 0.9 mg/dL (0.6-1.4); GLOM FILT RATE Estimated 97.9 mL/min (>60); GLUCOSE FASTING 204 mg/dL (70-110); HDL CHOLESTEROL 35 mg/dL (29-75); POTASSIUM 3.9 mmol/L (3.5-5.1); SODIUM 136 mmol/L (135-145)
[2016-12-23 06:10] LABS: TRIGLYCERIDES 437 mg/dL (10-160)
== END 2016-12-23 23:00 | DRG 638 ==
LOC: SED 15:02 → CEDOF 17:21 → C5C 17:21 → CICCU3 17:21 → CEDOF 17:32 → SED 17:32 → CICCU3 17:32 → CEDOF 17:32 → CICCU3 21:55 → CEDOF 21:55 → CICCU3 21:55 → UNDODEPER 12-21 21:19 → C5C 12-22 21:25
PROVIDERS: Emergency Medicine; Hospitalist; Physician Assistant Medical
PROC: B246YZZ Ultrasonography of Right and Left Heart using Other Contrast (ICD-10-PCS; principal; 2016-12-20)
DX: E11.00 Type 2 diabetes mellitus with hyperosmolarity without nonketotic hyperglycemic-hyperosmolar coma (NKHHC) (principal); N17.9 Acute kidney failure, unspecified; E87.1 Hypo-osmolality and hyponatremia; E87.6 Hypokalemia; F70 Mild intellectual disabilities; G40.909 Epilepsy, unspecified, not intractable, without status epilepticus; I10 Essential (primary) hypertension; E78.5 Hyperlipidemia, unspecified; Z81.1 Family history of alcohol abuse and dependence; R07.89 Other chest pain; Z83.3 Family history of diabetes mellitus; Z82.49 Family history of ischemic heart disease and other diseases of the circulatory system; F31.9 Bipolar disorder, unspecified
CPT/HCPCS: 71010; 76705; 78452; 80048; 80053; 80061; 80076; 81003; 82010; 82550; 82553; 82947; 83036; 83735; 84484; 85025; 85027; 93005; 93017; 93306; 96361; 96365; 96375; 99291; A9500; C9113; J0515; J1630; J1815; J1885; J2060; J2405; J2785

== ENCOUNTER 2016-12-23 19:53 | Inpatient (IN) | payer OTHER ==
--- NOTE | ~2016-12-23 | HP ---
Unit #: [id number] #: [id number] Patient: CARL LATHAM [id number] [facility] [address] [place] [address] [id number] I MR#: [id number] NAME: CARL LATHAM ROOM: [facility] Age: 51 Sex: M Admission Date: 12/23/2016 : 1965 Attending Physician: Brett Blake M.D. Admitting Physician: Brett Blake M.D. Primary Care Physician: Elijah Gaona M.D. HISTORY AND PHYSICAL NOTE Carl is a 51-year-old male admitted on 12/23/[address] [place] [address] with bipolar disorder, aggression, and qst-ok-nyeamwv behavior. He was transferred here from [facility] where he was admitted for hyperglycemia on 12/20/2016. I reviewed the history and physical from that admission, and there are no changes. Dictated by... Heydi Ferrara/lalit TD: 12/25/2016 08:03 JOB #: [id number] HISTORY AND PHYSICAL Page 1 of 1 X YUMIKO PARIS APRN X HISTORY AND PHYSICAL
--- NOTE | ~2016-12-23 | CO ---
Unit #: [id number] #: [id number] Patient: CARL LATHAM [id number] [facility] [address] [place] [address] [id number] I MR#: [id number] NAME: CARL LATHAM ROOM: [facility] Age: 51 Sex: M Admission Date: 12/23/2016 : 1965 Attending Physician: Brett Blake M.D. Primary Care Physician: Elijah Gaona M.D. Consultation Date: 12/24/2016 CONSULTATION REPORT HISTORY OF PRESENT ILLNESS Carl has a history of type 2 diabetes. He was recently admitted to [facility]. On admission, he was found to have a blood sugar of 680. He was transferred here for bipolar disorder and aggression and blood sugars here have been 354, 275, and 281. He is receiving Levemir 30 units subcu q.h.s., NovoLog 8 units with meals and an additional high dose sliding scale of NovoLog with meals. He reports that he has not been taking any of his medications when he was at home. No other complaints. PHYSICAL EXAMINATION CARDIAC: Regular rate and rhythm. No murmurs, gallops, or rubs. RESPIRATORY: Clear to auscultation bilaterally. ASSESSMENT AND PLAN Type 2 diabetes. We will continue with current insulin regimen and add Levemir 10 units subcu q.a.m. We will continue to follow. Please notify if blood sugars continue to remain. Dictated by... Uma Morris A.P.R.N. for Abdelrahman Duffy/uli TD: 12/24/2016 23:12 JOB #: [id number] CONSULTATION REPORT Page 1 of 1 X UMA PARIS APRN CONSULTATION REPORT
--- NOTE | ~2016-12-23 | DS ---
Unit #: [id number] #: [id number] Patient: CARL LATHAM [id number] [facility] [address] [place] [address] [id number] I MR#: [id number] NAME: CARL LATHAM ROOM: [facility] Age: 51 Sex: M Admission Date: 12/23/2016 : 1965 Discharge Date: 12/26/2016 Attending Physician: Brett Blake M.D. Primary Care Physician: Elijah Gaona M.D. DISCHARGE SUMMARY REASON FOR ADMISSION Aggression. DIAGNOSTIC STUDIES LABORATORY RESULTS: Unremarkable. HOSPITAL COURSE The patient was admitted to inpatient unit on 12/23/2016 and discharged on 12/26/2016. The patient was able to maintain safe behavior. The patient had poor coping skill, became mad, angry, upset when asked him to wait for discharge. The patient otherwise able to maintain safe behavior, compliant with medication, showed improvement. The patient participated in some other group, structured milieu, and medication management. Subsequently, the patient was discharged with a plan to follow up in outpatient program. DISCHARGE MEDICATIONS Protonix 40 mg daily for GERD, Lasix 40 mg daily for hypertension, Depakote 1000 mg at bedtime and 500 mg daily for mood symptom and seizure, Klor-Con 20 mEq daily, potassium supplement, Seroquel 300 mg b.i.d. for psychosis, Lipitor 10 mg daily for elevated cholesterol, Vimpat 200 mg b.i.d. for seizure disorder, Tegretol 200 mg b.i.d. for seizure disorder, Zestril 5 mg daily for hypertension. DISCHARGE DIAGNOSES Psychiatric: 1. Bipolar mood disorder, not otherwise specified, F31.89. 2. Anxiety disorder, not otherwise specified, F41.9. Secondary diagnosis: Mild intellectual disability. Medical diagnosis: Type 2 diabetes mellitus, hypertension, seizure disorder, valvular heart disease. Stressors: Psychosocial stressor. DISCHARGE INSTRUCTIONS The patient to follow up in outpatient clinic as per social security assessor. CONDITION ON DISCHARGE The patient was pleasant and cooperative. Denied any psychotic symptom or any suicidal ideation. PROGNOSIS Unit #: [id number] #: [id number] Patient: CARL LATHAM Guarded. DIET AND ACTIVITY As tolerated. Dictated by... Brett Blkae M.D. ISABEL/uli TD: 12/27/2016 06:06 JOB #: [id number] DISCHARGE SUMMARY Page 1 of 1 X Brett Blake MD DISCHARGE SUMMARY
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
--- NOTE | ~2016-12-23 | PN ---
Unit #: [id number] #: [id number] Patient: CARL LATHAM [id number] [facility] [address] [place] [address] [id number] MR#: [id number] NAME: CARL LATHAM ROOM: [facility] Age: 51 Sex: M Admission Date: 12/23/2016 : 1965 Attending Physician: Brett Blake M.D. Admitting Physician: Brett Blake M.D. Primary Care Physician: Abdelrahman Madrid NOTES DATE OF SERVICE: 12/25/2016 DISCUSSION Mr. Carl Latham is a 31-year-old male, seen on 12/25/2016. The patient interviewed, chart reviewed, and obtained information from nursing staff. The patient became mad, angry, upset, agitated, hostile, aggressive. Subsequently, the patient was given Haldol 10, Cogentin 1, and Ativan 1 mg IM. The patient has poor insight, poor judgment, carries a diagnosis of mild MR, history of bipolar mood disorder. REVIEW OF SYSTEMS Complete review of systems is unremarkable. MENTAL STATUS EXAMINATION General appearance, the patient dressed casually. Attention span and concentration, poor. Oriented in place and person. Mood and affect, labile. Speech, rapid. Thought process, circumstantial, guarded. Denied any thoughts of harming self, but hostile, aggressive, impulsive, paranoid. Recent and remote memory, poor. Insight and judgment, poor. DIAGNOSIS Bipolar mood disorder, not otherwise specified. ASSESSMENT AND PLAN Advised to continue with current medication and therapeutic protocol. If needed, consider further adjustment of medication. Dictated by... Abdelrahman Phelps/uli TD: 12/26/2016 02:25 JOB #: [id number] Unit #: [id number] #: [id number] Patient: CARL LATHAM PROGRESS NOTES Page 1 of 1 X Brett Blake MD PROGRESS NOTE
[~2016-12-23 19:53] MED LIST changes: +CARBATROL PO; +DIVALPROEX PO; +HALDOL PO; +INVEGA PO; +LEVEMIR SUBQ; +LISINOPRIL PO; +MOBIC PO; +NEURONTIN PO; +OMEPRAZOLE PO; +POTASSIUM CL PO; +SEROQUEL PO; +THERAGRAM PO; +TRIAM/HCTZ PO; +VIMPAT PO; +VITAMIN B6; +ZANTAC PO
== END 2016-12-26 12:42 | disposition home or self-care (01) | DRG 885 ==
LOC: P1S 23:31
DX: F31.89 Other bipolar disorder (principal); E11.9 Type 2 diabetes mellitus without complications; I10 Essential (primary) hypertension; F41.9 Anxiety disorder, unspecified; F70 Mild intellectual disabilities; G40.909 Epilepsy, unspecified, not intractable, without status epilepticus
CPT/HCPCS: 82947; J0515; J1630; J2060

== ENCOUNTER 2017-01-07 17:39 | Inpatient (IN) | payer OTHER ==
--- NOTE | ~2017-01-07 | CR72 ---
[facility]. [facility] A Service of [facility] & [facility] RADIOLOGY TEXT RESULTS PATIENT: CARL LATHAM LOCATION: [facility] 340-01 : [birth year] UNIT #: [id number] AGE: [address]: Mae Nelson MD SEX: M ORDER DR: [id number] [place] [id number] MR#: [id number] Acc #: [id number] NAME: CARL LATHAM : 1965 SEX: M STUDY DATE/TIME: 01/07/2017 21:27 UNIT: SEDOF ROOM: [facility] STUDY DESCRIPTION: CR Chest Single View Portable Attending Physician: Zackery Brar M.D. Referring Physician: Pato Mosqueda M.D. Ordering Physician: Elijah Carter Primary Care Physician: Elijah Gaona M.D. MEDICAL IMAGING REPORT This report is preliminary unless electronic signature is present. EXAM Portable chest HISTORY Chest pain today. FINDINGS A single AP portable view of the chest shows both lungs to be clear. The heart is normal in size. The mediastinal contour is normal. No significant bone abnormalities are seen. IMPRESSION Normal portable chest. Dictated by... Jeremie Dang M.D. THIS IS AN ELECTRONICALLY VERIFIED REPORT Jeremie Dang M.D. at 01/10/2017 10:19 AM PATY/heidi TD: 01/08/2017 05:46 JOB #: [id number] MEDICAL IMAGING REPORT Page 1 of 1
--- NOTE | ~2017-01-07 | EKG ---
PATIENT: CARL LATHAM UNIT #: [id number] Ventricular Rate: 70 BPM Atrial Rate: 70 BPM P-R Interval: 188 ms QRS Duration: 156 ms Q-T Interval: 412 ms QTC Calculation(Bezet): 444 ms P [place]: 68 degrees Calculated R [place]: 45 degrees Calculated T [place]: 22 degrees Diagnosis Line: Normal sinus rhythm Diagnosis Line: Right bundle branch block Diagnosis Line: Abnormal ECG Diagnosis Line: When compared with ECG of 08-JAN-2017 09:05, Diagnosis Line: (unconfirmed) Diagnosis Line: No significant change was found Diagnosis Line: Confirmed by ISABELLA BAR MD ([id number]) on Diagnosis Line: 01/11/2017 5:18:52 PM INTERPRETING : THOMAS
--- NOTE | ~2017-01-07 | EKG ---
PATIENT: CARL LATHAM UNIT #: [id number] Ventricular Rate: 86 BPM Atrial Rate: 86 BPM P-R Interval: 182 ms QRS Duration: 154 ms Q-T Interval: 392 ms QTC Calculation(Bezet): 469 ms P [place]: 59 degrees Calculated R [place]: 11 degrees Calculated T [place]: 14 degrees Diagnosis Line: Normal sinus rhythm Diagnosis Line: Right bundle branch block Diagnosis Line: Abnormal ECG Diagnosis Line: When compared with ECG of 21-DEC-2016 06:09, Diagnosis Line: Premature atrial complexes are no longer Present Diagnosis Line: Confirmed by ISABELLA BAR MD ([id number]) on Diagnosis Line: 01/11/2017 5:14:28 PM INTERPRETING MD: THOMAS
--- NOTE | ~2017-01-07 | CO ---
Unit #: [id number] #: [id number] Patient: CARL LATHAM [id number] [address] [address] [id number] I MR#: [id number] NAME: CARL LATHAM ROOM: 340 Age: 51 Sex: M Admission Date: 01/07/2017 : 1965 Attending Physician: Mae Nelson M.D. Primary Care Physician: Elijah Gaona M.D. Consultation Date: 01/09/2017 CONSULTATION REPORT REQUESTING PHYSICIAN Dr. Santana. REASON FOR CONSULTATION Hyperosmolar hyperglycemia. HISTORY OF PRESENT ILLNESS This is a 51-year-old male with history of type 2 diabetes mellitus, bipolar disorder, hypertension, hyperlipidemia, mental retardation, presented to emergency room with elevated blood sugars and chest pain. On his arrival, his blood sugars were above 663 and hyponatremia with sodium of 125. The patient was transferred to the ICU and is started on insulin drip and IV fluids. A consult was called for further management of diabetes mellitus. This patient's insulin drip has been discontinued. REVIEW OF SYSTEMS 12-point review of systems completed, is unremarkable. PAST MEDICAL HISTORY See HPI. MEDICATIONS At home include Levemir 30 units at bedtime, Actos 15 mg daily, valproic acid 500 mg in the morning and 1000 in the evening, Lasix 40 mg daily, Neurontin 100 mg at bedtime, Haldol, Seroquel 300 mg b.i.d., Vimpat 200 mg b.i.d., triamterene/hydrochlorothiazide 37.5/25 mg daily. PAST SURGICAL HISTORY Hernia repair. SOCIAL HISTORY He is disabled. Not . No smoking. No alcohol. No history drug abuse. FAMILY HISTORY Remarkable for coronary artery disease, hypertension, hyperlipidemia, diabetes mellitus. PHYSICAL EXAMINATION GENERAL: He is lying comfortably, in no acute distress. VITAL SIGNS: Temperature 97.6, pulse is 79, respirations 16, blood pressure 117/65. HEENT: EOMI. Pupils equally reactive to light. Unit #: [id number] #: [id number] Patient: CARL LATHAM NECK: Supple. No thyromegaly noted. CHEST: Good air entry. CVS: Regular rhythm. No murmurs. ABDOMEN: Soft and nontender. Bowel sounds positive. EXTREMITIES: No edema noted. NEUROLOGIC: Nonfocal. Moving all extremities. DIAGNOSTIC STUDIES LABORATORY RESULTS: Glucose is 227, BUN is 19, creatinine is 1. GFR 86. Sodium 134, A1c is 15.9. ASSESSMENT 1. Hyperosmolar hyperglycemia, which is improved. 2. Hyponatremia, which is improved. 3. Insulin dependence. 4. Bipolar disorder. PLAN The patient was started on Levemir 30 units daily at bedtime. We will continue the same dose at this point. Add NovoLog 10 units each meal. Increase sliding scale to medium dose. Advance diet to CCD 45 to 60 g each meal. Accu-Cheks a.c. and h.s. Continue to monitor electrolytes and replace as needed. Thank you again for consultation. Dictated by... Abdelrahman Harper/uli TD: 01/09/2017 16:38 JOB #: [id number] CONSULTATION REPORT Page 1 of 1 X Martha Robertson MD X CONSULTATION REPORT
--- NOTE | ~2017-01-07 | EKG ---
PATIENT: CARL LATHAM UNIT #: [id number] Ventricular Rate: 95 BPM Atrial Rate: 95 BPM P-R Interval: 192 ms QRS Duration: 162 ms Q-T Interval: 404 ms QTC Calculation(Bezet): 507 ms P [place]: 67 degrees Calculated R [place]: 20 degrees Calculated T [place]: 8 degrees Diagnosis Line: Normal sinus rhythm Diagnosis Line: Right bundle branch block Diagnosis Line: Nonspecific ST and T wave abnormality consider Diagnosis Line: lateral injury Diagnosis Line: Abnormal ECG Diagnosis Line: When compared with ECG of 21-DEC-2016 06:09, Diagnosis Line: Premature atrial complexes are no longer Present Diagnosis Line: QT has lengthened Diagnosis Line: Reconfirmed by ISABLELA BAR MD ([id number]) on Diagnosis Line: 01/16/2017 10:28:46 PM INTERPRETING MD: THOMAS
--- NOTE | ~2017-01-07 | HP ---
Unit #: [id number] #: [id number] Patient: CARL LATHAM [id number] [address] [place], [place] [address] [id number] I MR#: [id number] NAME: CARL LATHAM ROOM: [facility] Age: 51 Sex: M Admission Date: 01/07/2017 : 1965 Attending Physician: Mae Nelson M.D. Referring Physician: Pato Mosqueda M.D. Primary Care Physician: Elijah Gaona M.D. HISTORY AND PHYSICAL HISTORY OF PRESENT ILLNESS 51-year-old white male with history of hypertension, type 2 diabetes mellitus, bipolar, mental retardation, hypertension, dyslipidemia, presents to the emergency room with elevated blood sugar and chest pain. Chest pain is not worse with exertion. There is a family history of coronary artery disease. The patient has no cardiac history. He states that it started after he had a fall and a seizure on the side walk a few weeks ago. Cardiac enzymes have been normal. The patient is exquisitely tender in the sternum. It is likely chest wall pain. Cardiology has been consulted. His blood sugar in the ER was 663. He was placed on a nonDK drip as he had a negative acetone and essentially a normal pH at 7.330. His sodium was low on admission but it has corrected itself overnight with IV fluids and control of his blood sugars. BUN was 33 and is improved. The rest of his labs were fairly unremarkable. Chest x-ray showed no active disease. EKG shows a sinus rhythm, right bundle branch block but is otherwise within normal limits and the patient is admitted. ALLERGIES No known allergies except latex. MEDICATIONS PRIOR TO ADMISSION Carbatrol 200 mg b.i.d.; divalproex 500 mg a.m. and 1,000 mg p.m.; Lasix 40 mg daily; Neurontin 100 mg q.h.s.; Haldol 0.5 mg b.i.d.; Invega 3 mg daily; Levemir 30 units subcu q.h.s.; Zestril 10 mg daily; omeprazole 20 mg daily; Actos 15 mg daily; potassium 20 mEq daily; Seroquel 300 mg b.i.d.; zantac 150 mg b.i.d.; Zocor 20 mg daily; multivitamins daily; triamterene/HCTZ 37.5 25 one dose daily; Vimpat 200 mg b.i.d.; B6 dose unknown daily; Mobic 15 mg p.o. daily p.r.n. PAST MEDICAL HISTORY Again the patient has had a hernia repair, has a history of hypertension, GE reflux disease, renal failure, type 2 diabetes mellitus, seizure disorder, bipolar, mild mental retardation, depression, anxiety, hyperlipidemia. SOCIAL HISTORY He is disabled, not , nonsmoker and nondrinker. No street drug use. FAMILY HISTORY Positive for coronary artery disease, hypertension, hyperlipidemia, and diabetes. PHYSICAL EXAMINATION VITAL SIGNS: Afebrile, pulse 96, respirations 25, blood pressure 130/63, Unit #: [id number] #: [id number] Patient: CARL LATHAM O2 sats 100% on room air. HEENT: Unremarkable except for nasal cannula in place. NECK: Supple without JVD, bruits, adenopathy or thyromegaly. CHEST: Clear to auscultation. Tender lower sternal area without any bruising or rash seen. HEART: Regular rate and rhythm without any murmurs, rubs or gallops. ABDOMEN: Soft, nondistended, nontender with positive bowel sounds and no hepatosplenomegaly. EXTREMITIES: No clubbing, cyanosis or edema. /RECTAL: Deferred. NEUROLOGIC: Shows no focal deficits. DIAGNOSTIC STUDIES LAB VALUES: CBC normal. Venous pH 7.330, acetone 0. Urinalysis normal. Sodium 125, blood sugar 663, BUN 33. Cardiac enzymes x3 sets normal. PT and PTT within normal limits. Hemoglobin A1c 15.9. IMAGING STUDIES: Chest x-ray - no active disease. CARDIOLOGY STUDIES: EKG - normal sinus rhythm, right bundle branch block. IMPRESSION 1. Chest wall pain. 2. Hyperglycemia. 3. Type 2 diabetes mellitus. 4. Seizure disorder. 5. Bipolar disorder. 6. Mental retardation. 7. Hyponatremia. This resolved with a sodium level this morning at 135. 8. Mild dehydration. 9. Hypertension. 10. Hyperlipidemia. PLAN Discontinued Mobic p.r.n. pain medications and Lovenox. Endo to see for evaluation of his hyperglycemia and on DKA insulin protocol. Dictated by Regino Santana M.D. WRK/jasiel TD: 01/08/2017 15:12 JOB #: [id number] HISTORY AND PHYSICAL Page 1 of 1 X Regino Santana MD X HISTORY AND PHYSICAL
--- NOTE | ~2017-01-07 | EKG ---
PATIENT: CALR LATHAM UNIT #: [id number] Ventricular Rate: 95 BPM Atrial Rate: 95 BPM P-R Interval: 192 ms QRS Duration: 162 ms Q-T Interval: 404 ms QTC Calculation(Bezet): 507 ms P [place]: 67 degrees Calculated R [place]: 20 degrees Calculated T [place]: 8 degrees Diagnosis Line: Normal sinus rhythm Diagnosis Line: Right bundle branch block Diagnosis Line: Nonspecific ST and T wave abnormality Diagnosis Line: Abnormal ECG Diagnosis Line: When compared with ECG of 21-DEC-2016 06:09, Diagnosis Line: Premature atrial complexes are no longer Present Diagnosis Line: QT has lengthened Diagnosis Line: Confirmed by ISABELLA BAR MD ([id number]) on Diagnosis Line: 01/16/2017 10:26:30 PM INTERPRETING MD: THOMAS
--- NOTE | ~2017-01-07 | CO ---
Unit #: [id number] #: [id number] Patient: CARL LATHAM [id number] [facility] [address] [place], [place] [address] [id number] MR#: [id number] NAME: CARL LATHAM ROOM: 340 Age: 51 Sex: M Admission Date: 01/07/2017 : 1965 Attending Physician: Mae Nelson M.D. Primary Care Physician: Elijah Gaona M.D. Consultation Date: 01/09/2017 CONSULTATION REPORT REASON FOR CONSULTATION Agitation. HISTORY OF PRESENT ILLNESS Mr. Carl Latham is a 51-year-old white male, seen in room 340, bed 1, on 01/09/[address] [facility]. The patient became agitated, security was called. The patient was extremely agitated. Subsequently, the patient was given Haldol 10, Cogentin 1, and Ativan 1 IM, which was effective. The patient was able to calm down and able to talk more cooperatively. The patient reports that he just wanted to go home and does not want to stay here. The patient denied any suicidal or homicidal ideation. Denied any psychotic symptom. The patient's caregiver came and was agreeable for the patient to follow up on the outpatient basis. The patient at this time is not suicidal or homicidal. The patient received medication due to violent behavior, aggressive behavior to staff, throwing things, threatening to harm others. The patient's caregiver agreed for the patient to follow up on the outpatient basis. The patient's vital signs; temperature 97.5, pulse 94, respirations 18, blood pressure 127/84, oxygen saturation 100%. No side effects from medication. PAST PSYCHIATRIC HISTORY Remarkable for history of one admission at [facility]. The patient has a history of mild intellectual disability, bipolar mood disorder, resident of a senior care. PAST MEDICAL HISTORY Remarkable for type 2 diabetes mellitus, history of seizures, history of hypertension, valvular heart disease, dyslipidemia, hypokalemia. MEDICATIONS The patient is on Zocor, Tegretol, Depakote, Klor-Con, Zestril, Protonix, Vimpat, Seroquel, Depakote, furosemide, Mobic, insulin. ALLERGIES To latex. FAMILY HISTORY AND SOCIAL HISTORY The patient has a caregiver who is supportive. No family support. No history of any abuse. No history of any substance abuse. REVIEW OF SYSTEMS Complete review of systems unremarkable. Unit #: [id number] #: [id number] Patient: CARL LATHAM MENTAL STATUS EXAMINATION Vital signs, please see above. General appearance; the patient dressed in street clothes, dressed casually, made good eye contact, compliant, cooperative. Mood was sad, dysphoric. Attention span and concentration, fair. Speech, slow. Oriented in place and person. Mood and affect, labile. Thought process, coherent. Thought content, the patient denied any thoughts of harming self or others. Denied any auditory or visual hallucination, but prior to receiving injection, the patient was very aggressive. Recent and remote memory, fair. Language, intact. Fund of knowledge, fair to poor. Insight and judgment, fair to slightly impaired. DIAGNOSES Psychiatric: Bipolar mood disorder, recurrent, moderate, depressed, F31.9; psychosis, not otherwise specified, F29.0. Secondary diagnosis: Mild intellectual disability. Medical diagnosis: Please refer to H and P. Stressors: Psychosocial stressors. ASSESSMENT AND PLAN 1. Supportive psychotherapy and psychoeducation provided to the patient. 2. Educated about benefits and side effects of medication and course and prognosis of illness. 3. The patient and caregiver were given crisis line #[phone]. Advised the patient to be monitored very closely and if needed, explained about the services available at [facility]. Please feel free to call if any questions telephone #[phone]. Dictated by... Brett Blake M.D. ISABEL/uli TD: 01/11/2017 09:39 JOB #: [id number] CONSULTATION REPORT Page 1 of 1 X Brett Blake MD X CONSULTATION REPORT
--- NOTE | ~2017-01-07 | EKG ---
PATIENT: CARL LATHAM UNIT #: [id number] Ventricular Rate: 74 BPM Atrial Rate: 74 BPM P-R Interval: 170 ms QRS Duration: 160 ms Q-T Interval: 418 ms QTC Calculation(Bezet): 463 ms P [place]: 41 degrees Calculated R [place]: 40 degrees Calculated T [place]: 9 degrees Diagnosis Line: Normal sinus rhythm Diagnosis Line: Right bundle branch block Diagnosis Line: Abnormal ECG Diagnosis Line: When compared with ECG of 08-JAN-2017 02:19, Diagnosis Line: (unconfirmed) Diagnosis Line: No significant change was found Diagnosis Line: Confirmed by ISABELLA BAR MD ([id number]) on Diagnosis Line: 01/11/2017 5:16:37 PM INTERPRETING MD: THOMAS
[2017-01-07 17:59] LABS: BASOPHIL# 0.1 X10e3 (0-0.3); BASOPHIL% 0.9 % (0-2.5); DIFF IND NO; EOSINOPHIL# 0.1 X10e3 (0-0.7); EOSINOPHIL% 1.7 % (0.0-7.0); HEMOGLOBIN 13.5 gm/dL (13.0-16.0); LYMPHOCYTE# 1.9 X10e3 (1.0-3.5); LYMPHOCYTE% 28.9 % (17.0-45.0); MEAN CELL VOLUME 66.7 FL (83-96); MEAN PLATELET VOLUME 9.1 FL (6.5-11.5); MONOCYTE# 0.6 X10e3 (0-1.0); MONOCYTE% 9.2 % (3.0-12.0); NEUTROPHIL# 3.9 X10e3 (1.5-7.1); NEUTROPHIL% 59.3 % (40-75); PLATELET COUNT 222 X10e3 (140-420); RED BLOOD COUNT 6.14 X10e (3.90-5.60); RED CELL DISTRIBUTION WIDTH 14.9 % (11.0-15.5); WHITE BLOOD COUNT 6.6 X10e3 (4.0-10.5)
[2017-01-07 18:07] LABS: ARTERIAL BLD GAS O2 SATURATION 41.5 % (90.0-100.0); ARTERIAL BLOOD GAS CARBOXY HB 3.9 %sat (0.0-9.0); ARTERIAL BLOOD GAS HCO3 30.6 mmol/L
[2017-01-07 18:10] LABS: ARTERIAL BLOOD GAS DELIVERY ROOM AIR; ARTERIAL DRAW? NO
[2017-01-07 18:23] LABS: MICRO INDICATED? NO; URINE APPEARANCE CLEAR; URINE BILIRUBIN NEG (NEG); URINE BLOOD NEG (NEG); URINE COLOR YELLOW; URINE GLUCOSE 300 MG/DL (NORM); URINE KETONE NEG (NEG); URINE LEUKOCYTE ESTERASE NEG (NEG); URINE NITRATE NEG (NEG); URINE PH 5.5 (5-8); URINE PROTEIN NEG (NEG); URINE SOURCE CLEAN CATCH; URINE SPECIFIC GRAVITY <=1.005 (1.003-1.035); URINE UROBILINOGEN 0.2 MG/DL (NORM)
[2017-01-07 18:23] LABS: ALBUMIN SERUM 4.1 g/dL (3.5-5.0); BILIRUBIN,TOTAL 0.2 mg/dL (0.2-2.0); BUN/CREATININE RATIO 25.38; CALCIUM SERUM 8.7 mg/dL (8.4-10.2); CREATININE SERUM 1.3 mg/dL (0.6-1.4); GLOM FILT RATE Estimated 62.8 mL/min (>60); POTASSIUM 4.2 mmol/L (3.5-5.1); PROTEIN TOTAL SERUM 7.3 g/dL (6.0-8.3)
[2017-01-07 18:25] LABS: BILIRUBIN,INDIRECT 0.2 mg/dL (0.0-0.9)
[2017-01-07 20:48] LABS: POC - CKMB <1.0 ng/mL (0.0-7.9); POC - TROPONIN <0.05 ng/mL (<=0.05)
[2017-01-08 03:00] LABS: BASOPHIL# 0.1 X10e3 (0-0.3); BASOPHIL% 0.9 % (0-2.5); EOSINOPHIL# 0.1 X10e3 (0-0.7); EOSINOPHIL% 1.6 % (0.0-7.0); HEMATOCRIT 38.6 % (38.0-50.0); HEMOGLOBIN 11.9 gm/dL (13.0-16.0); LYMPHOCYTE# 3.5 X10e3 (1.0-3.5); LYMPHOCYTE% 39.7 % (17.0-45.0); MEAN CELL VOLUME 64.2 FL (83-96); MEAN CORPUSCULAR HEMOGLOBIN 19.8 PG (28-34); MEAN CORPUSCULAR HGB CONC 30.9 g/dL (30-36); MEAN PLATELET VOLUME 8.9 FL (6.5-11.5); MONOCYTE% 11.1 % (3.0-12.0); NEUTROPHIL# 4.1 X10e3 (1.5-7.1); NEUTROPHIL% 46.7 % (40-75); PLATELET COUNT 205 X10e3 (140-420); RED BLOOD COUNT 6.01 X10e (3.90-5.60); RED CELL DISTRIBUTION WIDTH 15.1 % (11.0-15.5); WHITE BLOOD COUNT 8.9 X10e3 (4.0-10.5)
[2017-01-08 03:03] LABS: PARTIAL THROMBOPLASTIN TIME 25.4 SECONDS (23.5-31.3); PROTHROMBIN TIME (PATIENT) 10.9 SECONDS (9.6-11.5)
[2017-01-08 03:17] LABS: DIFF IND NO
[2017-01-08 03:34] LABS: BUN/CREATININE RATIO 21.81; CALCIUM SERUM 8.5 mg/dL (8.4-10.2); CREATININE SERUM 1.1 mg/dL (0.6-1.4); GLOM FILT RATE Estimated 76.8 mL/min (>60); POTASSIUM 3.4 mmol/L (3.5-5.1)
[2017-01-08 03:35] LABS: %MB 1.1 % (0.0-4.0); MB 0.8 ng/ml
[2017-01-08 08:41] LABS: %MB 1.2 % (0.0-4.0); MB 0.9 ng/ml
[2017-01-09 05:33] LABS: BASOPHIL% 0.6 % (0-2.5); EOSINOPHIL# 0.2 X10e3 (0-0.7); EOSINOPHIL% 2.9 % (0.0-7.0); HEMATOCRIT 37.9 % (38.0-50.0); HEMOGLOBIN 11.6 gm/dL (13.0-16.0); LYMPHOCYTE# 2.9 X10e3 (1.0-3.5); LYMPHOCYTE% 45.6 % (17.0-45.0); MEAN CELL VOLUME 64.4 FL (83-96); MEAN CORPUSCULAR HEMOGLOBIN 19.7 PG (28-34); MEAN CORPUSCULAR HGB CONC 30.6 g/dL (30-36); MEAN PLATELET VOLUME 9.1 FL (6.5-11.5); MONOCYTE# 0.5 X10e3 (0-1.0); MONOCYTE% 7.7 % (3.0-12.0); NEUTROPHIL# 2.8 X10e3 (1.5-7.1); NEUTROPHIL% 43.2 % (40-75); PLATELET COUNT 193 X10e3 (140-420); RED BLOOD COUNT 5.88 X10e (3.90-5.60); WHITE BLOOD COUNT 6.4 X10e3 (4.0-10.5)
[2017-01-09 05:35] LABS: DIFF IND YES
[2017-01-09 06:06] LABS: ANISOCYTOSIS SL; PLATELET ESTIMATE NORMAL (NORMAL)
[2017-01-09 06:40] LABS: CALCIUM SERUM 8.9 mg/dL (8.4-10.2); GLOM FILT RATE Estimated 86.2 mL/min (>60); POTASSIUM 4.1 mmol/L (3.5-5.1)
== END 2017-01-09 19:57 | disposition left against medical advice (07) | DRG 638 ==
LOC: SED 17:39 → SEDOF 21:14 → CICCU3 21:14 → SEDOF 22:35 → CICCU3 01-08 01:14 → SEDOF 01-08 01:14 → CICCU3 01-08 05:22 → C3A PCU 01-09 15:00 → CICCU3 01-09 15:00 → C3A PCU 01-09 19:57
PROVIDERS: Emergency Medicine; Hospitalist; Internal Medicine Cardiovascular Disease
DX: E11.00 Type 2 diabetes mellitus with hyperosmolarity without nonketotic hyperglycemic-hyperosmolar coma (NKHHC) (principal); E87.1 Hypo-osmolality and hyponatremia; F31.5 Bipolar disorder, current episode depressed, severe, with psychotic features; I10 Essential (primary) hypertension; E11.65 Type 2 diabetes mellitus with hyperglycemia; R07.89 Other chest pain; G40.909 Epilepsy, unspecified, not intractable, without status epilepticus; E86.0 Dehydration; E78.5 Hyperlipidemia, unspecified; Z79.4 Long term (current) use of insulin; F70 Mild intellectual disabilities
CPT/HCPCS: 36415; 71010; 80048; 80076; 81003; 82010; 82550; 82553; 82803; 82947; 83036; 84484; 85025; 85610; 85730; 93005; 94761; 96361; 96374; 96375; 99285; J0515; J1630; J1650; J1815; J2060; J2270; J2405

== ENCOUNTER 2017-01-17 11:15 | Emergency (ER) | payer OTHER ==
--- NOTE | ~2017-01-17 | CR142 ---
[facility]. [facility] A Service of [facility] & [facility] RADIOLOGY TEXT RESULTS PATIENT: CARL LATHAM LOCATION: SED : 63 UNIT #: [id number] AGE: [address]: Delmy Thompson MD SEX: M ORDER DR: [id number] [place] [id number] E MR#: [id number] Acc #: [id number] NAME: CARL LATHAM : 1965 SEX: M STUDY DATE/TIME: 01/17/2017 UNIT: SED ROOM: STUDY DESCRIPTION: CR Hand Min 3 Views Rt Attending Physician: Delmy Thompson M.D. Ordering Physician: Delmy Thompson M.D. Primary Care Physician: Elijah Gaona M.D. MEDICAL IMAGING REPORT This report is preliminary unless electronic signature is present. EXAM Right hand 3 views 01/17/2017 11:45 hours HISTORY 51-year-old man with acute onset of right hand pain on 01/16/17. No known injury. COMPARISON 11/24/2016 FINDINGS AP, lateral and oblique views demonstrate normal bone density. Atherosclerotic calcifications are present. There is no fracture, dislocation, joint space loss or erosive change. IMPRESSION 1. Normal appearance to the joints and bones. 2. Vascular atherosclerotic calcifications are present. Dictated by... Demi De La Paz M.D. THIS IS AN ELECTRONICALLY VERIFIED REPORT Demi De La Paz M.D. at 01/17/2017 2:29 PM RADHAM/ricky TD: 01/17/2017 13:09 JOB #: [id number] MEDICAL IMAGING REPORT Page 1 of 1
== END 2017-01-17 12:26 | disposition home or self-care (01) ==
LOC: SED 11:15
DX: M79.641 Pain in right hand (principal); E11.9 Type 2 diabetes mellitus without complications; E78.5 Hyperlipidemia, unspecified; Z79.4 Long term (current) use of insulin; Z79.899 Other long term (current) drug therapy; Z91.040 Latex allergy status
CPT/HCPCS: 73130; 99282; 99283

== ENCOUNTER 2017-01-19 21:38 | Emergency (ER) | payer OTHER | END 2017-01-19 22:40 | disposition home or self-care (01) | LOC: CED 21:38 | DX: M25.512 Pain in left shoulder (principal); M79.642 Pain in left hand; M79.632 Pain in left forearm; K21.9 Gastro-esophageal reflux disease without esophagitis; E11.9 Type 2 diabetes mellitus without complications; I10 Essential (primary) hypertension; Z79.899 Other long term (current) drug therapy | CPT/HCPCS: 99282 ==

== ENCOUNTER 2017-02-03 19:28 | Emergency (ER) | payer OTHER | END 2017-02-03 20:51 | disposition home or self-care (01) | LOC: SED 19:28 | DX: M25.512 Pain in left shoulder (principal); I10 Essential (primary) hypertension; E11.9 Type 2 diabetes mellitus without complications; E78.5 Hyperlipidemia, unspecified; Z79.899 Other long term (current) drug therapy; Z79.4 Long term (current) use of insulin | CPT/HCPCS: 99283 ==

== ENCOUNTER 2017-02-18 20:32 | Emergency (ER) | payer OTHER ==
--- NOTE | ~2017-02-18 | EKG ---
PATIENT: CARL LATHAM UNIT #: [id number] Ventricular Rate: 88 BPM Atrial Rate: 88 BPM P-R Interval: 190 ms QRS Duration: 158 ms Q-T Interval: 394 ms QTC Calculation(Bezet): 476 ms P Ventura: 55 degrees Calculated R Ventura: 0 degrees Calculated T Ventura: 9 degrees Diagnosis Line: Normal sinus rhythm Diagnosis Line: Right bundle branch block Diagnosis Line: Abnormal ECG Diagnosis Line: When compared with ECG of 09-JAN-2017 07:09, Diagnosis Line: T wave inversion now evident in Anterior leads Diagnosis Line: Confirmed by ISABELLA BAR MD ([id number]) on Diagnosis Line: 02/20/2017 9:58:26 AM INTERPRETING MICA GUZMAN
--- NOTE | ~2017-02-18 | CR72 ---
[facility] A Service of [facility] & [facility] RADIOLOGY TEXT RESULTS PATIENT: ACRL LATHAM LOCATION: [facility] : 63 UNIT #: [id number] AGE: [address]: Wesley Suarez MD SEX: M ORDER DR: [id number] [facility] [address] [place], [place] [address] [id number] E MR#: [id number] Acc #: [id number] NAME: CARL LATHAM : 1965 SEX: M STUDY DATE/TIME: 02/18/2017 21:41 UNIT: [facility] ROOM: STUDY DESCRIPTION: CR Chest Single View Portable Attending Physician: Saman Suarez M.D. Ordering Physician: Ed Doctor [id number] [facility] Primary Care Physician: Primary Care Physician No MEDICAL IMAGING REPORT This report is preliminary unless electronic signature is present EXAM Portable chest HISTORY Chest pain today. FINDINGS The cardiac size and pulmonary vascularity are within normal limits. Relatively shallow inspiration. No infiltrates or effusions. IMPRESSION No acute findings. Low lung volumes. Dictated by... Jeremie Dang M.D. THIS IS AN ELECTRONICALLY VERIFIED REPORT Jeremie Dang M.D. at 02/19/2017 2:48 PM PATY/kell TD: 02/19/2017 12:10 JOB #: [id number] MEDICAL IMAGING REPORT Page 1 of 1 COPY
[2017-02-18 21:31] LABS: POC - TROPONIN <0.05 ng/mL (<=0.05)
[2017-02-18 21:32] LABS: BASOPHIL% 0.6 % (0-2.5); EOSINOPHIL# 0.1 X10e3 (0-0.7); EOSINOPHIL% 1.9 % (0.0-7.0); HEMATOCRIT 38.8 % (38.0-50.0); LYMPHOCYTE# 2.1 X10e3 (1.0-3.5); LYMPHOCYTE% 30.4 % (17.0-45.0); MEAN CELL VOLUME 65.6 FL (83-96); MEAN CORPUSCULAR HEMOGLOBIN 20.3 PG (28-34); MEAN CORPUSCULAR HGB CONC 30.9 g/dL (30-36); MEAN PLATELET VOLUME 8.5 FL (6.5-11.5); MONOCYTE# 0.8 X10e3 (0-1.0); MONOCYTE% 12.1 % (3.0-12.0); NEUTROPHIL# 3.7 X10e3 (1.5-7.1); PLATELET COUNT 264 X10e3 (140-420); RED BLOOD COUNT 5.92 X10e (3.90-5.60); RED CELL DISTRIBUTION WIDTH 17.1 % (11.0-15.5); WHITE BLOOD COUNT 6.8 X10e3 (4.0-10.5)
[2017-02-18 21:38] LABS: DIFF IND NO
[2017-02-18 21:46] LABS: PARTIAL THROMBOPLASTIN TIME 27.2 SECONDS (23.5-31.3); PROTHROMBIN TIME (PATIENT) 11.2 SECONDS (10.0-11.7)
[2017-02-18 22:08] LABS: CALCIUM SERUM 9.2 mg/dL (8.4-10.2); CREATININE SERUM 1.6 mg/dL (0.6-1.4); GLOM FILT RATE Estimated 48.8 mL/min (>60); POTASSIUM 3.9 mmol/L (3.5-5.1)
[2017-02-18 22:52] LABS: POC - TROPONIN <0.05 ng/mL (<=0.05)
== END 2017-02-19 01:41 | disposition home or self-care (01) ==
LOC: CED 20:32
PROVIDERS: Emergency Medicine
DX: R07.9 Chest pain, unspecified (principal); E11.9 Type 2 diabetes mellitus without complications; I10 Essential (primary) hypertension; F31.9 Bipolar disorder, unspecified; G40.901 Epilepsy, unspecified, not intractable, with status epilepticus; Z79.899 Other long term (current) drug therapy
CPT/HCPCS: 36415; 71010; 80048; 82553; 82947; 84484; 85025; 85379; 85610; 85730; 93005; 99285

== ENCOUNTER 2017-03-08 21:19 | Emergency (ER) | payer OTHER ==
[~2017-03-08] VITALS: Ht 175.3 cm; Wt 99.8 kg
--- NOTE | ~2017-03-08 | CT4 ---
[facility] A Service of [facility] RADIOLOGY TEXT RESULTS PATIENT: CARL LATHAM LOCATION: [facility] : 63 UNIT #: [id number] AGE: [address]: Wesley Suarez MD SEX: M ORDER DR: [id number] [facility] [address] [place], [place] [address] [id number] E MR#: [id number] Acc #: [id number] NAME: CARL LATHAM : 1965 SEX: M STUDY DATE/TIME: 03/09/2017 UNIT: [facility] ROOM: STUDY DESCRIPTION: CT Abd and Pelv Wo Cont Attending Physician: Wesley Suarez Referring Physician: Primary Care Physician No Ordering Physician: Saman Suarez M.D. Primary Care Physician: Primary Care Physician No MEDICAL IMAGING REPORT This report is preliminary unless electronic signature is present EXAM CT abdomen and pelvis 03/09 at 02:18 INDICATIONS Right lower abdominal pain radiating from the front to the back of the abdomen. Symptoms started today. TECHNIQUE Axial noncontrast images were obtained through the abdomen and pelvis. Multiplanar reformats were obtained. Comparison made with 10/06/2016. The CT exam was performed with one or more of the following radiation dose reduction techniques: automatic exposure control, adjustment of mA and/or kV according to patient size, and iterative reconstruction. FINDINGS Abdomen: Lung bases are clear. Gallbladder contracted. No renal or ureteral stones are seen and there is no hydronephrosis. Scattered low-density lesions in the right hepatic lobe are present. These are seen as well on the contrast CT of 11/04/2015. These are stable and are presumable benign. May reflect cysts are hemangiomata. The unenhanced solid organs are otherwise normal. No free fluid or adenopathy identified. The unopacified GI tract is within normal limits. Pelvis: There are no lower ureteral stones. The bladder is normal. The appendix is normal. IMPRESSION 1. No acute findings in the abdomen or pelvis. 2. No renal or ureteral stones. No hydronephrosis. 3. Grossly normal unopacified GI tract, including the appendix. 4. Low-density lesions in the liver are stable from 11/04/2015 and STS. [facility] A Service of [facility] & [facility] RADIOLOGY TEXT RESULTS PATIENT: CARL LATHAM LOCATION: [facility] : 63 UNIT #: [id number] AGE: [address]: Wesley Suarez MD SEX: M ORDER DR: benign. There is a presumably cysts or hemangiomata. Dictated by... Deejay Mullen Jr., M.D. THIS IS AN ELECTRONICALLY VERIFIED REPORT Deejay Mullen Jr., M.D. at 03/09/2017 9:40 PM KIARA/ricky TD: 03/09/2017 09:55 JOB #: [id number] MEDICAL IMAGING REPORT Page 1 of 1 COPY
[2017-03-09 02:23] LABS: BASOPHIL% 0.3 % (0-2.5); EOSINOPHIL# 0.1 X10e3 (0-0.7); EOSINOPHIL% 1.3 % (0.0-7.0); HEMATOCRIT 37.1 % (38.0-50.0); HEMOGLOBIN 11.5 gm/dL (13.0-16.0); LYMPHOCYTE# 2.1 X10e3 (1.0-3.5); LYMPHOCYTE% 37.4 % (17.0-45.0); MEAN CELL VOLUME 66.6 FL (83-96); MEAN CORPUSCULAR HEMOGLOBIN 20.7 PG (28-34); MEAN CORPUSCULAR HGB CONC 31.1 g/dL (30-36); MEAN PLATELET VOLUME 8.5 FL (6.5-11.5); MONOCYTE# 0.6 X10e3 (0-1.0); MONOCYTE% 10.3 % (3.0-12.0); NEUTROPHIL# 2.8 X10e3 (1.5-7.1); NEUTROPHIL% 50.7 % (40-75); PLATELET COUNT 246 X10e3 (140-420); RED BLOOD COUNT 5.57 X10e (3.90-5.60); RED CELL DISTRIBUTION WIDTH 17.5 % (11.0-15.5); WHITE BLOOD COUNT 5.6 X10e3 (4.0-10.5)
[2017-03-09 02:25] LABS: DIFF IND NO
[2017-03-09 02:49] LABS: BUN/CREATININE RATIO 19.23; CALCIUM SERUM 8.8 mg/dL (8.4-10.2); CREATININE SERUM 1.3 mg/dL (0.6-1.4); GLOM FILT RATE Estimated 62.8 mL/min (>60); POTASSIUM 3.6 mmol/L (3.5-5.1)
[2017-03-09 03:31] LABS: URINE SOURCE CLEAN CATCH
[2017-03-09 03:37] LABS: URINE APPEARANCE CLEAR; URINE BILIRUBIN NEG (NEG); URINE BLOOD NEG (NEG); URINE COLOR YELLOW; URINE GLUCOSE 500 MG/DL (NEG); URINE KETONE TRACE (NEG); URINE LEUKOCYTE ESTERASE NEG (NEG); URINE NITRATE NEG (NEG); URINE PROTEIN NEG (NEG); URINE SPECIFIC GRAVITY 1.029 (1.003-1.035)
[2017-03-09 03:49] LABS: CULTURE INDICATED? NO
== END 2017-03-09 04:41 | disposition home or self-care (01) ==
LOC: CED 21:19
PROVIDERS: Emergency Medicine
DX: M54.5 Low back pain (principal); E11.9 Type 2 diabetes mellitus without complications; F41.9 Anxiety disorder, unspecified; F32.9 Major depressive disorder, single episode, unspecified; G40.909 Epilepsy, unspecified, not intractable, without status epilepticus; Z79.4 Long term (current) use of insulin; Z79.899 Other long term (current) drug therapy; Z91.040 Latex allergy status
CPT/HCPCS: 36415; 74176; 80048; 81003; 85025; 99284